=== PATIENT | male | born 1985 | race Caucasian/White ===

== ENCOUNTER 2017-06-17 21:21 | Emergency (ER) | payer OTHER, SELFPAY ==
[~2017-06-17] VITALS: Ht 172.7 cm; Wt 85.3 kg
[~2017-06-17 21:21] MED LIST: BACTRIM DS TAB1 EAC1 ORAL
[2017-06-17] MEDS ORDERED: Tubing IV Cassette IV ONE (21:45)
[2017-06-17] MEDS ORDERED: Morphine Sulfate 4mg/ml Inj IVP ONE (21:45)
--- NOTE | 2017-06-17 21:45 | Emergency Room Report ---
History of Present Illness General Chief Complaint: Abdominal Pain Source: Patient Present Illness HPI Is a 31-year-old male with no past medical history. He presents with chief complaint of abdominal pain and vomiting. Last night he ate a deconditioned around 11 PM. He woke up around 1 PM today with abdominal pain epigastric area. Has retching. Not much is coming out. No diarrhea. Subjective chills and questionable fever. Pain is 8/10. Sharp and crampy in nature. Allergies: Coded Allergies: No Known Allergies (Unverified , 03/28/14) Patient History Past Medical History: see triage record, old chart reviewed Past Surgical History: other Pertinent Family History: none Social History: Denies: smoking Immunizations: other Reviewed Nursing Documentation: PMH: Agreed, PSxH: Agreed Nursing Documentation-PMH Past Medical History: No Stated History Review of Systems Eye: Denies: eye pain, blurred vision ENT: Denies: ear pain, nose congestion, throat swelling Respiratory: Denies: cough, shortness of breath Cardiovascular: Denies: chest pain, palpitations Gastrointestinal: Reports: abdominal pain, nausea, vomiting, Denies: diarrhea Musculoskeletal: Denies: back pain, joint pain Skin: Denies: rash Neurological: Denies: headache, numbness Endocrine: Denies: increased thirst, increased urine Hematologic/Lymphatic: Denies: easy bruising All Other Systems: negative except mentioned in HPI Physical Exam Vital Signs Date Time Temp Pulse Resp B/P (MAP) Pulse Ox O2 Delivery O2 Flow Rate FiO2 06/17/17 21:28 100.0 91 18 129/75 98 Room Air vitals normal except for low-grade fever Sp02 EP Interpretation: reviewed, normal General Appearance: well appearing, no apparent distress, alert Head: normocephalic, atraumatic Eyes: bilateral eye PERRL, bilateral eye EOMI ENT: hearing grossly normal, normal pharynx Neck: full range of motion, supple, no meningismus Respiratory: chest non-tender, lungs clear, normal breath sounds Cardiovascular #1: regular rate, rhythm, no murmur Gastrointestinal: normal bowel sounds, non tender, no mass, no organomegaly, no bruit, non-distended, tenderness - Periumbilical Musculoskeletal: back normal, gait/station normal, normal range of motion Neurologic: alert, oriented x3 Psychiatric: mood/affect normal Skin: warm/dry Medical Decision Making Diagnostic Impression: Primary Impression: Enteritis ER Course Patient presents with abdominal pain and vomiting. CT scan showed gastritis/ ileus. He fell better now. No evidence of obstruction. No evidence of appendicitis. CT scan also showed finding of pulmonary nodule. He has no respiratory complaint. CT/MRI/US Diagnostic Results CT/MRI/US Diagnostic Results : Imaging Test Ordered: CT abdomen and pelvis Impression Read by radiologist. Enteritis/ileus Last Vital Signs Date Time Temp Pulse Resp B/P (MAP) Pulse Ox O2 Delivery O2 Flow Rate FiO2 06/17/17 21:28 100.0 91 18 129/75 98 Room Air Status: improved Disposition: HOME, SELF-CARE Condition: Stable Scripts Naproxen* (NAPROSYN*) 500 Mg Tablet 500 MG ORAL TWICE A DAY, #20 TAB Prov: ORLANDO BRICEÑO M.D. 06/17/17 Metronidazole* (FLAGYL*) 500 Mg Tablet 500 MG ORAL BID, #14 TAB Prov: ORLANDO BRICEÑO M.D. 06/17/17 Ciprofloxacin Hcl* (CIPROFLOXACIN HCL*) 500 Mg Tablet 500 MG ORAL Q12H, #14 TAB 0 Refills Prov: ORLANDO BRICEÑO M.D. 06/17/17 Additional Instructions: Followup with your Dr. in 2-5 days. Return if symptom worsen. ORLANDO BRICEÑO M.D. Jun 17, 2017 21:45
[2017-06-17 21:54] LABS: MEAN CORPUSCULAR HEMOGLOBIN 30.8 PG (27.0-31.0); MEAN CORPUSCULAR HGB CONC 32.6 G/DL (32.0-36.0); MEAN CORPUSCULAR VOLUME 94 FL (80-99); MEAN PLATELET VOLUME 7.3 FL (6.5-10.1); PLATELET COUNT 162 K/UL (150-450); RED BLOOD COUNT 4.78 M/UL (4.70-6.10); RED CELL DISTRIBUTION WIDTH 11.4 % (11.6-14.8); WHITE BLOOD COUNT 6.4 K/UL (4.8-10.8)
[2017-06-17 21:55] LABS: LYMPHOCYTES % (AUTO) 4.1 % (20.0-45.0); MONOCYTES % (AUTO) 8.4 % (1.0-10.0); NEUTROPHILS % (AUTO) 86.5 % (45.0-75.0)
[2017-06-17 21:56] LABS: BASOPHILS % (AUTO) 0.4 % (0.0-2.0); EOSINOPHILS % (AUTO) 0.6 % (0.0-3.0)
[2017-06-17 22:13] LABS: ANION GAP 10 mmol/L (5-15); CALCIUM 8.7 MG/DL (8.5-10.1); CARBON DIOXIDE 27 MMOL/L (21-32); CHLORIDE 105 MMOL/L (98-107); CREATININE 1.1 MG/DL (0.55-1.30); GLOMERULAR FILTRATION RATE > 60 mL/min (>60); SODIUM 142 MMOL/L (136-145)
[2017-06-17 22:17] LABS: ALANINE AMINOTRANSFERASE 34 U/L (12-78); ALBUMIN/GLOBULIN RATIO 1.2 (1.0-2.7); ASPARTATE AMINO TRANSFERASE 22 U/L (15-37); LIPASE 189 U/L (73-393); TOTAL PROTEIN 7.8 G/DL (6.4-8.2)
[2017-06-17 22:21] LABS: APPEARANCE,URINE CLEAR; KETONES,URINE NEGATIVE (NEGATIVE); LEUKOCYTE ESTERASE ,URINE NEGATIVE (NEGATIVE); NITRITE,URINE NEGATIVE (NEGATIVE); PH,URINE 8 (4.5-8.0); PROTEIN,URINE NEGATIVE (NEGATIVE); UROBILINOGEN,URINE NORMAL MG/DL (0.0-1.0)
[2017-06-17 23:12] VITALS: BP 115/64
[2017-06-17] MEDS ORDERED: NAPROSYN500 M1 ORAL (23:19)
[2017-06-17] MEDS ORDERED: CIPROFLOXACIN500 M2 ORAL (23:19)
[2017-06-17] MEDS ORDERED: METRONIDAZOLE500 MG ORAL (23:19)
[2017-06-17 23:25] VITALS: BP 115/64
[2017-06-17] MEDS ORDERED: metroNIDAZOLE 500mg tab ORAL ONE (23:30)
[2017-06-17] MEDS ORDERED: Ciprofloxacin 500mg tab ORAL ONE (23:30)
--- NOTE | 2017-06-18 11:13 | Diagnostic Imaging Report ---
Clinical Indication: Abdominal pain Technique: No oral contrast utilized, per emergency room physician request IV administration nonionic contrast. Venous phase spiral acquisition obtained through the abdomen and pelvis. Multiplanar reconstructions were generated. Total dose length product 840 mGycm. CTDIvol(s) 15 mGy. Dose reduction achieved using automated exposure control Comparison: None Findings: Normal appendix. No evidence of diverticulosis or diverticulitis. Small bowel loops are mildly prominent and fluid-filled. Is trace free fluid within the pelvis Distal esophagus, stomach, duodenum are unremarkable. There is slight increased attenuation of the fat of the mesenteric root. There are also prominent lymph nodes within the mesenteric root. The liver, gallbladder, bile ducts, pancreas, spleen, adrenals, kidneys are unremarkable. Prominent and numerous but not frankly enlarged retroperitoneal nodes are demonstrated. No pelvic mass or adenopathy. There is a 3 mm nodule adjacent to the major fissure in the left lower lobe, 3 of series 4. The bones are unremarkable Impression: Induration of the mesenteric fat and multiple prominent mesenteric lymph nodes. Slightly prominent fluid-filled small bowel loops indicated this could be due to mild enteritis changes, but could also just be nonspecific mesenteric inflammation Trace free pelvic fluid, nonspecific but not physiologic in a male patient 3 mm left lower lobe lung nodule. No further followup necessary if patient is low risk for lung carcinoma. If patient is at high-risk, further evaluation with short interval CT in 6-12 months is recommended This agrees with the preliminary interpretation provided overnight by [facility] service. The CT scanner at [facility] is accredited by the [employer] and the scans are performed using protocols designed to limit radiation exposure to as low as reasonably achievable to attain images of sufficient resolution adequate for diagnostic evaluation.
== END 2017-06-17 23:27 | disposition home or self-care (01) ==
LOC: EMR 21:42
DX: K52.9 Noninfective gastroenteritis and colitis, unspecified (principal)
CPT/HCPCS: 36415; 74177; 80053; 81003; 83690; 85025; 96361; 96374; 96375; 99284; J2270; J2405; Q9967

== ENCOUNTER 2017-09-08 16:57 | Emergency (ER) | payer OTHER ==
[~2017-09-08] VITALS: Ht 167.6 cm; Wt 82.1 kg
[~2017-09-08 16:57] MED LIST changes: +CIPROFLOXACIN500 M2 ORAL; +METRONIDAZOLE500 MG ORAL; +NAPROSYN500 M1 ORAL
[2017-09-08] MEDS ORDERED: ZOFRAN ODT4 MG ORAL (17:11)
--- NOTE | 2017-09-08 17:12 | Emergency Room Report ---
History of Present Illness General Chief Complaint: Nausea, Vomiting, and Diarrhea Source: Patient Present Illness HPI 32-year-old male with no sig pmhx p/w nausea vomiting diarrhea, epigastric abd pain for one day. Pt reports n/v, >5 episodes of nbnb vomiting, >5 episodes of watery non bloody diarrhea. Denies black or bloody stools. Patient states pain started gradually , localized to epigastric area, non radiating, burning in nature, intermittent. No relieving or exacerbating factors. had same thing happen 4 mos ago. denies chronic NSAID use. Denies fever, chills. No hx of abdominal surgeries. No hx of endoscopies/colonoscopies. Allergies: Coded Allergies: No Known Allergies (Unverified , 03/28/14) Patient History Past Medical History: see triage record Past Surgical History: none Pertinent Family History: none Reviewed Nursing Documentation: PMH: Agreed, PSxH: Agreed Nursing Documentation-PMH Past Medical History: No Stated History Review of Systems All Other Systems: negative except mentioned in HPI Physical Exam Vital Signs Date Time Temp Pulse Resp B/P (MAP) Pulse Ox O2 Delivery O2 Flow Rate FiO2 09/08/17 17:00 98.1 95 18 119/70 98 Room Air 98.1 Sp02 EP Interpretation: reviewed, normal General Appearance: alert, GCS 15, non-toxic, mild distress Head: normocephalic, atraumatic Eyes: bilateral eye normal inspection, bilateral eye PERRL, bilateral eye EOMI ENT: normal ENT inspection, normal pharynx, normal voice, moist mucus membranes Neck: normal inspection, full range of motion, supple Respiratory: normal inspection, lungs clear, normal breath sounds, no respiratory distress, no retraction, no wheezing, speaking full sentences, chest symmetrical Cardiovascular #1: normal inspection, regular rate, rhythm, no edema, normal capillary refill Cardiovascular #2: 2+ radial (R), 2+ radial (L) Gastrointestinal: other - mild epigastric tenderness no ruq tenderness no guarding no rebound. nontende elsewhere on abdomen Genitourinary: no CVA tenderness Musculoskeletal: normal inspection, back normal, normal range of motion, non- tender Neurologic: normal inspection, alert, oriented x3, responsive, motor strength/ tone normal, sensory intact, normal gait, speech normal Psychiatric: normal inspection, judgement/insight normal, memory normal Skin: normal inspection, normal color, no rash, warm/dry, well hydrated, normal turgor Medical Decision Making Diagnostic Impression: Primary Impression: Nausea, vomiting, and diarrhea ER Course 32-year-old male with nausea vomiting diarrhea and epigastric abdominal pain Differential Diagnosis: Gastritis, gastroenteritis, cholecystitis, appendicitis, diverticulitis, UTI/ pyelo At this time abdomen is soft nontender the exception of the epigastric region, will hold CT for now. No recent antibiotic use Plan: Basic labs, ua, ekg Pepcid, maalox, pain control, IVF ER course: Patient has remained stable during ED stay. nor further episodes of vomiting Pain improved. Repeat abdominal exam is nontender. Disposition: Patient is to be discharged to home. Prescriptions given are Zofran Patient is instructed to follow up with their primary care doctor within 5 days. also instructed to fu with gastroenterology if having persistent chronic sx Strict return precautions discussed with patient such as fever, chills, worsening/severe abdominal pain, nausea, vomiting, black or bloody stools, which may indicate severe illness. Patient verbalizes understanding and agrees with plan. Please note that this Emergency Department Report was dictated using [employer] measurer technology software, occasionally this can lead to erroneous entry secondary to interpretation by the dictation equipment Laboratory Tests Test 09/08/17 17:35 White Blood Count 8.3 K/UL (4.8-10.8) Red Blood Count 5.40 M/UL (4.70-6.10) Hemoglobin 16.9 G/DL (14.2-18.0) Hematocrit 50.4 % (42.0-52.0) Mean Corpuscular Volume 93 FL (80-99) Mean Corpuscular Hemoglobin 31.4 PG (27.0-31.0) H Mean Corpuscular Hemoglobin Concent 33.6 G/DL (32.0-36.0) Red Cell Distribution Width 12.0 % (11.6-14.8) Platelet Count 190 K/UL (150-450) Mean Platelet Volume 8.0 FL (6.5-10.1) Neutrophils (%) (Auto) 79.1 % (45.0-75.0) H Lymphocytes (%) (Auto) 8.7 % (20.0-45.0) L Monocytes (%) (Auto) 8.7 % (1.0-10.0) Eosinophils (%) (Auto) 2.9 % (0.0-3.0) Basophils (%) (Auto) 0.6 % (0.0-2.0) Urine Color Yellow Urine Appearance Clear Urine pH 6.5 (4.5-8.0) Urine Specific [place] 1.010 (1.005-1.035) Urine Protein Negative (NEGATIVE) Urine Glucose (UA) Negative (NEGATIVE) Urine Ketones 1+ (NEGATIVE) H Urine Occult Blood Negative (NEGATIVE) Urine Nitrite Negative (NEGATIVE) Urine Bilirubin 1+ (NEGATIVE) H Urine Ictotest Pending Urine Urobilinogen Normal MG/DL (0.0-1.0) Urine Leukocyte Esterase Negative (NEGATIVE) Sodium Level 137 MMOL/L (136-145) Potassium Level 4.6 MMOL/L (3.5-5.1) Chloride Level 101 MMOL/L (98-107) Carbon Dioxide Level 28 MMOL/L (21-32) Anion Gap 8 mmol/L (5-15) Blood Urea Nitrogen 17 mg/dL (7-18) Creatinine 1.0 MG/DL (0.55-1.30) Estimate Glomerular Filtration Rate > 60 mL/min (>60) Glucose Level 109 MG/DL (74-106) H Calcium Level 9.8 MG/DL (8.5-10.1) Total Bilirubin 0.7 MG/DL (0.2-1.0) Aspartate Amino Transferase (AST) 28 U/L (15-37) Alanine Aminotransferase (ALT) 49 U/L (12-78) Alkaline Phosphatase 84 U/L (46-116) Total Protein 8.3 G/DL (6.4-8.2) H Albumin 4.5 G/DL (3.4-5.0) Globulin 3.8 g/dL Albumin/Globulin Ratio 1.2 (1.0-2.7) Lipase 172 U/L (73-393) Last Vital Signs Date Time Temp Pulse Resp B/P (MAP) Pulse Ox O2 Delivery O2 Flow Rate FiO2 09/08/17 17:00 98.1 95 18 119/70 98 Room Air 98.1 Disposition: HOME, SELF-CARE Condition: Improved Scripts Ondansetron Odt* (ZOFRAN ODT*) 4 Mg Tab.rapdis 4 MG ORAL Q6H Y for Nausea & Vomiting, #15 TAB 0 Refills Prov: Glenna Galeana M.D. 09/08/17 Patient Instructions: VOMITING AND DIARRHEA, Nonspecific (Adult) Glenna Galeana M.D. Sep 08, 2017 17:12
[2017-09-08 18:01] LABS: BASOPHILS % (AUTO) 0.6 % (0.0-2.0); EOSINOPHILS % (AUTO) 2.9 % (0.0-3.0); HEMATOCRIT 50.4 % (42.0-52.0); HEMOGLOBIN 16.9 G/DL (14.2-18.0); LYMPHOCYTES % (AUTO) 8.7 % (20.0-45.0); MEAN CORPUSCULAR VOLUME 93 FL (80-99); MONOCYTES % (AUTO) 8.7 % (1.0-10.0); NEUTROPHILS % (AUTO) 79.1 % (45.0-75.0); PLATELET COUNT 190 K/UL (150-450); WHITE BLOOD COUNT 8.3 K/UL (4.8-10.8)
[2017-09-08 18:11] LABS: APPEARANCE,URINE CLEAR; BILIRUBIN, URINE 1+ (NEGATIVE); GLUCOSE, URINE (UA) NEGATIVE (NEGATIVE); KETONES,URINE 1+ (NEGATIVE); LEUKOCYTE ESTERASE ,URINE NEGATIVE (NEGATIVE); NITRITE,URINE NEGATIVE (NEGATIVE); PH,URINE 6.5 (4.5-8.0); PROTEIN,URINE NEGATIVE (NEGATIVE); UROBILINOGEN,URINE NORMAL MG/DL (0.0-1.0)
[2017-09-08 18:13] LABS: ANION GAP 8 mmol/L (5-15); BLOOD UREA NITROGEN 17 mg/dL (7-18); CALCIUM 9.8 MG/DL (8.5-10.1); CARBON DIOXIDE 28 MMOL/L (21-32); CHLORIDE 101 MMOL/L (98-107); COLOR,URINE YELLOW; POTASSIUM 4.6 MMOL/L (3.5-5.1); SODIUM 137 MMOL/L (136-145)
[2017-09-08] MEDS ORDERED: Morphine Sulfate 4mg/ml Inj IVP ONE (18:15)
[2017-09-08 18:20] LABS: ALANINE AMINOTRANSFERASE 49 U/L (12-78); ALBUMIN 4.5 G/DL (3.4-5.0); ALBUMIN/GLOBULIN RATIO 1.2 (1.0-2.7); ALKALINE PHOSPHATASE 84 U/L (46-116); ASPARTATE AMINO TRANSFERASE 28 U/L (15-37); BILIRUBIN,TOTAL 0.7 MG/DL (0.2-1.0)
[2017-09-08 19:00] VITALS: BP 117/68
[2017-09-08 19:01] VITALS: BP 117/68
[2017-09-09] MEDS ORDERED: TRUVADA 200 MG1 EAC1 ORAL (23:27)
[2017-09-09] MEDS ORDERED: XANAX0.5 MG ORAL (23:27)
== END 2017-09-08 19:02 | disposition home or self-care (01) ==
LOC: EMR 17:30
DX: R11.2 Nausea with vomiting, unspecified (principal); R19.7 Diarrhea, unspecified
CPT/HCPCS: 36415; 80053; 81003; 83690; 85025; 96361; 96374; 96375; 99284; J2270; J2405; S0028

== ENCOUNTER 2017-09-09 19:23 | Inpatient (IN) | payer OTHER ==
[~2017-09-09] VITALS: Ht 172.7 cm; Wt 81.6 kg
[~2017-09-09 19:23] MED LIST changes: +ZOFRAN ODT4 MG ORAL
--- NOTE | 2017-09-09 20:01 | Emergency Room Report ---
History of Present Illness General Chief Complaint: Abdominal Pain Source: Patient Present Illness HPI 32-year-old male p/w nausea vomiting diarrhea, fever, epigastric abd pain for one week Patient was seen in the emergency room yesterday, diagnosed with gastroenteritis , felt much better after medications, and was discharged home. Patient now returning because stating that he is still having persistent symptoms. Throwing up everything. Vomiting more than 5 times Still able to drink some fluids and eat some bread. Also now complaining of fever, temperature 101 No recent antibiotics use, no recent travel Allergies: Coded Allergies: No Known Allergies (Unverified , 03/28/14) Patient History Past Medical History: see triage record Past Surgical History: none Pertinent Family History: none Reviewed Nursing Documentation: PMH: Agreed, PSxH: Agreed Nursing Documentation-PMH Past Medical History: No Stated History Review of Systems All Other Systems: negative except mentioned in HPI Physical Exam Vital Signs Date Time Temp Pulse Resp B/P (MAP) Pulse Ox O2 Delivery O2 Flow Rate FiO2 09/09/17 19:41 101.0 106 18 122/66 98 Room Air 100.9 Sp02 EP Interpretation: reviewed, normal General Appearance: alert, GCS 15, non-toxic, mild distress Head: normocephalic, atraumatic Eyes: bilateral eye normal inspection, bilateral eye PERRL, bilateral eye EOMI ENT: normal ENT inspection, normal voice, dry mucus membranes Neck: normal inspection, full range of motion, supple Respiratory: normal inspection, lungs clear, normal breath sounds, no respiratory distress, no retraction, no wheezing, speaking full sentences, chest symmetrical Cardiovascular #1: normal inspection, regular rate, rhythm, normal capillary refill Cardiovascular #2: 2+ radial (R), 2+ radial (L) Gastrointestinal: other - mild epigastric tenderness, no guarding no rebound Musculoskeletal: normal inspection, back normal, normal range of motion, non- tender Neurologic: normal inspection, alert, oriented x3, responsive, motor strength/ tone normal, sensory intact, normal gait, speech normal Psychiatric: normal inspection, judgement/insight normal, memory normal Skin: normal color, no rash, warm/dry Medical Decision Making Diagnostic Impression: Primary Impression: Dehydration Additional Impressions: Intractable nausea and vomiting Elevated lipase ER Course 32 yo M with nvd Differential Diagnosis: Gastritis, gastroenteritis, cholecystitis, appendicitis, diverticulitis, UTI/ pyelo At this time abdomen is soft nontender, not likely to have acute intra- abdominal surgical pathology, will hold CT for now. Plan: Basic labs, ua, ekg Pepcid, maalox, pain control, IVF ER course: patient given meds, still feeling nauseous repeat abd exam very soft given more zofran vomited again will admit Disposition: Patient is to be admitted to [facility] Please note that this Emergency Department Report was dictated using [employer] loader technology software, occasionally this can lead to erroneous entry secondary to interpretation by the dictation equipment Laboratory Tests Test 09/09/17 20:00 White Blood Count 5.8 K/UL (4.8-10.8) Red Blood Count 5.42 M/UL (4.70-6.10) Hemoglobin 16.8 G/DL (14.2-18.0) Hematocrit 50.4 % (42.0-52.0) Mean Corpuscular Volume 93 FL (80-99) Mean Corpuscular Hemoglobin 31.1 PG (27.0-31.0) H Mean Corpuscular Hemoglobin Concent 33.4 G/DL (32.0-36.0) Red Cell Distribution Width 11.8 % (11.6-14.8) Platelet Count 174 K/UL (150-450) Mean Platelet Volume 8.4 FL (6.5-10.1) Neutrophils (%) (Auto) 72.6 % (45.0-75.0) Lymphocytes (%) (Auto) 13.5 % (20.0-45.0) L Monocytes (%) (Auto) 10.5 % (1.0-10.0) H Eosinophils (%) (Auto) 2.8 % (0.0-3.0) Basophils (%) (Auto) 0.7 % (0.0-2.0) Sodium Level 134 MMOL/L (136-145) L Potassium Level 4.5 MMOL/L (3.5-5.1) Chloride Level 100 MMOL/L (98-107) Carbon Dioxide Level 25 MMOL/L (21-32) Anion Gap 9 mmol/L (5-15) Blood Urea Nitrogen 17 mg/dL (7-18) Creatinine 1.1 MG/DL (0.55-1.30) Estimate Glomerular Filtration Rate > 60 mL/min (>60) Glucose Level 106 MG/DL (74-106) Calcium Level 9.3 MG/DL (8.5-10.1) Total Bilirubin 0.6 MG/DL (0.2-1.0) Aspartate Amino Transferase (AST) 22 U/L (15-37) Alanine Aminotransferase (ALT) 41 U/L (12-78) Alkaline Phosphatase 80 U/L (46-116) Total Protein 8.1 G/DL (6.4-8.2) Albumin 4.1 G/DL (3.4-5.0) Globulin 4.0 g/dL Albumin/Globulin Ratio 1.0 (1.0-2.7) Lipase 433 U/L (73-393) H Last Vital Signs Date Time Temp Pulse Resp B/P (MAP) Pulse Ox O2 Delivery O2 Flow Rate FiO2 09/09/17 19:41 101.0 106 18 122/66 98 Room Air 100.9 Disposition: ADMITTED INPATIENT Condition: Serious Referrals: [facility],REFERRING (PCP) Glenna Galeana M.D. Sep 09, 2017 20:01
[2017-09-09] MEDS ORDERED: Morphine Sulfate 4mg/ml Inj IVP ONE (20:15)
[2017-09-09] MEDS ORDERED: Acetaminophen 500mg (ES) tab ORAL ONE (20:15)
[2017-09-09 20:43] LABS: BASOPHILS % (AUTO) 0.7 % (0.0-2.0); EOSINOPHILS % (AUTO) 2.8 % (0.0-3.0); HEMATOCRIT 50.4 % (42.0-52.0); HEMOGLOBIN 16.8 G/DL (14.2-18.0); LYMPHOCYTES % (AUTO) 13.5 % (20.0-45.0); MEAN CORPUSCULAR VOLUME 93 FL (80-99); MONOCYTES % (AUTO) 10.5 % (1.0-10.0); NEUTROPHILS % (AUTO) 72.6 % (45.0-75.0); PLATELET COUNT 174 K/UL (150-450); RED BLOOD COUNT 5.42 M/UL (4.70-6.10); RED CELL DISTRIBUTION WIDTH 11.8 % (11.6-14.8); WHITE BLOOD COUNT 5.8 K/UL (4.8-10.8)
[2017-09-09 20:52] LABS: ANION GAP 9 mmol/L (5-15); BLOOD UREA NITROGEN 17 mg/dL (7-18); CALCIUM 9.3 MG/DL (8.5-10.1); CARBON DIOXIDE 25 MMOL/L (21-32); CHLORIDE 100 MMOL/L (98-107); CREATININE 1.1 MG/DL (0.55-1.30); POTASSIUM 4.5 MMOL/L (3.5-5.1); SODIUM 134 MMOL/L (136-145)
[2017-09-09 20:57] LABS: ALANINE AMINOTRANSFERASE 41 U/L (12-78); ALBUMIN 4.1 G/DL (3.4-5.0); ALKALINE PHOSPHATASE 80 U/L (46-116); ASPARTATE AMINO TRANSFERASE 22 U/L (15-37); BILIRUBIN,TOTAL 0.6 MG/DL (0.2-1.0)
[2017-09-09 22:22] VITALS: BP 117/73
[2017-09-09 22:40] LABS: APPEARANCE,URINE CLEAR; BILIRUBIN, URINE 1+ (NEGATIVE); GLUCOSE, URINE (UA) NEGATIVE (NEGATIVE); KETONES,URINE 2+ (NEGATIVE); LEUKOCYTE ESTERASE ,URINE 1+ (NEGATIVE); NITRITE,URINE NEGATIVE (NEGATIVE); PH,URINE 5 (4.5-8.0); PROTEIN,URINE NEGATIVE (NEGATIVE); UROBILINOGEN,URINE NORMAL MG/DL (0.0-1.0)
[2017-09-09 22:41] LABS: COLOR,URINE YELLOW
[2017-09-09] MEDS ORDERED: XANAX0.5 MG ORAL (23:27)
[2017-09-09] MEDS ORDERED: TRUVADA 200 MG1 EAC1 ORAL (23:27)
[2017-09-09] MEDS ORDERED: Morphine Sulfate 4mg/ml Inj IVP PRN (23:45)
[2017-09-09 23:53] VITALS: BP 120/62
[2017-09-10] VITALS: BP 118/63
[2017-09-10] MEDS: D5 1/2NS 1,000 ML IV SCH ×3 (00:39→19:45)
[2017-09-10] MEDS: Morphine Sulfate 2mg/ml Inj IVP PRN ×2 (00:39→10:13)
[2017-09-10 04:00] VITALS: BP 125/74
[2017-09-10 08:00] VITALS: BP 113/78
[2017-09-10 08:17] LABS: BASOPHILS % (AUTO) 0.6 % (0.0-2.0); EOSINOPHILS % (AUTO) 3.5 % (0.0-3.0); HEMATOCRIT 44.8 % (42.0-52.0); HEMOGLOBIN 15.2 G/DL (14.2-18.0); LYMPHOCYTES % (AUTO) 26.5 % (20.0-45.0); MEAN CORPUSCULAR VOLUME 94 FL (80-99); MONOCYTES % (AUTO) 13.8 % (1.0-10.0); NEUTROPHILS % (AUTO) 55.5 % (45.0-75.0); PLATELET COUNT 137 K/UL (150-450); RED BLOOD COUNT 4.74 M/UL (4.70-6.10); RED CELL DISTRIBUTION WIDTH 12.1 % (11.6-14.8); WHITE BLOOD COUNT 4.8 K/UL (4.8-10.8)
[2017-09-10 09:02] LABS: ALANINE AMINOTRANSFERASE 26 U/L (12-78); ALBUMIN 3.3 G/DL (3.4-5.0); ALBUMIN/GLOBULIN RATIO 1.2 (1.0-2.7); ALKALINE PHOSPHATASE 65 U/L (46-116); AMYLASE 53 U/L (25-115); ANION GAP 4 mmol/L (5-15); ASPARTATE AMINO TRANSFERASE 20 U/L (15-37); BILIRUBIN,TOTAL 0.6 MG/DL (0.2-1.0); BLOOD UREA NITROGEN 12 mg/dL (7-18); CALCIUM 8.5 MG/DL (8.5-10.1); CARBON DIOXIDE 29 MMOL/L (21-32); CHLORIDE 104 MMOL/L (98-107); CREATININE 0.9 MG/DL (0.55-1.30); PHOSPHORUS 3.6 MG/DL (2.5-4.9); POTASSIUM 4.5 MMOL/L (3.5-5.1); SODIUM 137 MMOL/L (136-145)
--- NOTE | 2017-09-10 10:41 | Consultation ---
History of Present Illness General Date patient seen: Sep 10, 2017 Time patient seen: 12:45 Chief Complaint: Abdominal Pain Referring physician: dr Bernal Reason for Consultation: inpatient management Present Illness HPI 32y/old male without significant PMH p/w nausea, vomiting, diarrhea, fever, epigastric abd pain for one week Patient was seen in the emergency room yesterday, diagnosed with gastroenteritis , felt much better after medications, and was discharged home. Patient returned due to persistent symptoms , unable to hold down food, about 5 episodes of emesis, non bloody nobiliary able to drink some water diarrhea watery, no blood in stool Also reported fever-101 No recent antibiotics use, no recent travel in ED febrile, otherwise VSS no leukocytosis, stable HH, lytes, renal parameters and lytes elevated lipase -433 this am lipase down to normal- Mg-1.3 patient was admitted for further management Allergies: Coded Allergies: No Known Allergies (Unverified , 03/28/14) Medication History Scheduled Ciprofloxacin Hcl* (Ciprofloxacin Hcl*), 500 MG ORAL Q12H Emtricitabine/Tenofovir 200-300MG* (Truvada 200-300MG*), 1 TAB ORAL DAILY, ( Reported) Metronidazole* (Flagyl*), 500 MG ORAL BID Naproxen* (Naprosyn*), 500 MG ORAL TWICE A DAY Trimethoprim/Sulfamethoxazole 160/800* (Bactrim Ds Tablet*), 1 TAB ORAL Q12H Scheduled PRN Alprazolam* (Xanax*), 0.5 MG ORAL for Insomnia, (Reported) Ondansetron Odt* (Zofran Odt*), 4 MG ORAL Q6H PRN for Nausea & Vomiting Patient History History Provided By: Patient Healthcare decision maker Resuscitation status Full Code Advanced Directive on File No Review of Systems Constitutional: Reports: fever, weakness Eye: Reports: no symptoms ENT: Reports: no symptoms Cardiovascular: Reports: no symptoms Gastrointestinal: Reports: see HPI Genitourinary: Reports: no symptoms Musculoskeletal: Reports: no symptoms Skin: Reports: no symptoms Neurological: Reports: no symptoms Endocrine: Reports: no symptoms Physical Exam General Appearance: WD/WN, no apparent distress Lines, tubes and drains: peripheral HEENT: normocephalic, atraumatic, anicteric, mucous membranes moist, PERRL Neck: non-tender, supple Respiratory/Chest: lungs clear, no respiratory distress, no accessory muscle use Cardiovascular/Chest: normal peripheral pulses, normal rate, regular rhythm Abdomen: normal bowel sounds, soft - mild tenderness on palpation in epigastric area Extremities: normal range of motion, non-tender, no calf tenderness Skin Exam: warm/dry Neurologic: no motor/sensory deficits, alert, oriented x 3, responsive Musculoskeletal: normal muscle bulk Last 24 Hour Vital Signs Date Time Temp Pulse Resp B/P (MAP) Pulse Ox O2 Delivery O2 Flow Rate FiO2 09/10/17 10:13 101.3 09/10/17 09:31 101.3 09/10/17 08:00 101.2 101 18 113/78 98 09/10/17 04:00 98.0 67 20 125/74 98 Room Air 09/10/17 00:00 98.5 77 18 118/63 98 Room Air 09/09/17 23:59 98.3 90 18 120/62 95 Room Air 98.3 09/09/17 23:53 98.3 90 18 120/62 95 Room Air 98.3 09/09/17 22:22 98.3 85 18 117/73 95 Room Air 98.3 09/09/17 20:37 101.0 09/09/17 19:41 101.0 106 18 122/66 98 Room Air 100.9 Intake and Output 09/09/17 09/10/17 19:00 07:00 Intake Total 940 ml Balance 940 ml Intake Oral 240 ml IV Total 700 ml # Voids 2 Laboratory Tests Test 09/09/17 20:00 09/09/17 22:25 09/10/17 06:45 White Blood Count 5.8 K/UL (4.8-10.8) 4.8 K/UL (4.8-10.8) Red Blood Count 5.42 M/UL (4.70-6.10) 4.74 M/UL (4.70-6.10) Hemoglobin 16.8 G/DL (14.2-18.0) 15.2 G/DL (14.2-18.0) Hematocrit 50.4 % (42.0-52.0) 44.8 % (42.0-52.0) Mean Corpuscular Volume 93 FL (80-99) 94 FL (80-99) Mean Corpuscular Hemoglobin 31.1 PG (27.0-31.0) H 32.0 PG (27.0-31.0) H Mean Corpuscular Hemoglobin Concent 33.4 G/DL (32.0-36.0) 33.8 G/DL (32.0-36.0) Red Cell Distribution Width 11.8 % (11.6-14.8) 12.1 % (11.6-14.8) Platelet Count 174 K/UL (150-450) 137 K/UL (150-450) L Mean Platelet Volume 8.4 FL (6.5-10.1) 7.7 FL (6.5-10.1) Neutrophils (%) (Auto) 72.6 % (45.0-75.0) 55.5 % (45.0-75.0) Lymphocytes (%) (Auto) 13.5 % (20.0-45.0) L 26.5 % (20.0-45.0) Monocytes (%) (Auto) 10.5 % (1.0-10.0) H 13.8 % (1.0-10.0) H Eosinophils (%) (Auto) 2.8 % (0.0-3.0) 3.5 % (0.0-3.0) H Basophils (%) (Auto) 0.7 % (0.0-2.0) 0.6 % (0.0-2.0) Sodium Level 134 MMOL/L (136-145) L 137 MMOL/L (136-145) Potassium Level 4.5 MMOL/L (3.5-5.1) 4.5 MMOL/L (3.5-5.1) Chloride Level 100 MMOL/L (98-107) 104 MMOL/L (98-107) Carbon Dioxide Level 25 MMOL/L (21-32) 29 MMOL/L (21-32) Anion Gap 9 mmol/L (5-15) 4 mmol/L (5-15) L Blood Urea Nitrogen 17 mg/dL (7-18) 12 mg/dL (7-18) Creatinine 1.1 MG/DL (0.55-1.30) 0.9 MG/DL (0.55-1.30) Estimat Glomerular Filtration Rate > 60 mL/min (>60) > 60 mL/min (>60) Glucose Level 106 MG/DL (74-106) 101 MG/DL (74-106) Calcium Level 9.3 MG/DL (8.5-10.1) 8.5 MG/DL (8.5-10.1) Total Bilirubin 0.6 MG/DL (0.2-1.0) 0.6 MG/DL (0.2-1.0) Aspartate Amino Transf (AST/SGOT) 22 U/L (15-37) 20 U/L (15-37) Alanine Aminotransferase (ALT/SGPT) 41 U/L (12-78) 26 U/L (12-78) Alkaline Phosphatase 80 U/L (46-116) 65 U/L (46-116) Total Protein 8.1 G/DL (6.4-8.2) 6.1 G/DL (6.4-8.2) L Albumin 4.1 G/DL (3.4-5.0) 3.3 G/DL (3.4-5.0) L Globulin 4.0 g/dL 2.8 g/dL Albumin/Globulin Ratio 1.0 (1.0-2.7) 1.2 (1.0-2.7) Lipase 433 U/L (73-393) H 209 U/L (73-393) Urine Color Yellow Urine Appearance Clear Urine pH 5 (4.5-8.0) Urine Specific [place] 1.020 (1.005-1.035) Urine Protein Negative (NEGATIVE) Urine Glucose (UA) Negative (NEGATIVE) Urine Ketones 2+ (NEGATIVE) H Urine Occult Blood Negative (NEGATIVE) Urine Nitrite Negative (NEGATIVE) Urine Bilirubin 1+ (NEGATIVE) H Urine Ictotest Negative Urine Urobilinogen Normal MG/DL (0.0-1.0) Urine Leukocyte Esterase 1+ (NEGATIVE) H Urine RBC 0-2 /HPF (0 - 0) H Urine WBC 0-2 /HPF (0 - 0) Urine Squamous Epithelial Cells None /LPF (NONE/OCC) Urine Bacteria Few /HPF (NONE) Urine Mucus Many /LPF (NONE/OCC) H Phosphorus Level 3.6 MG/DL (2.5-4.9) Magnesium Level 1.3 MG/DL (1.8-2.4) L Amylase Level 53 U/L (25-115) Height (Feet): 5 Height (Inches): 8.00 Weight (Pounds): 180 Medications Current Medications Medications (Trade) Dose Ordered Sig/Nisreen Route PRN Reason Start Time Stop Time Status Last Admin Dose Admin Acetaminophen (Tylenol) 650 mg Q4H PRN ORAL Mild Pain/Temp > 100.5 09/10/17 00:00 10/10/17 00:00 09/10/17 09:31 Ciprofloxacin 200 ml @ 200 mls/hr Q12HR IV 09/10/17 09:00 09/17/17 08:59 09/10/17 09:24 Dextrose/Sodium Chloride 1,000 ml @ 100 mls/hr Q10H IV 09/09/17 23:45 10/09/17 23:44 09/10/17 09:24 Metronidazole 100 ml @ 100 mls/hr Q8HR IVPB 09/10/17 06:00 09/17/17 05:59 09/10/17 05:05 Morphine Sulfate (Morphine Sulfate) 2 mg Q4H PRN IVP For Pain 09/09/17 23:45 09/16/17 23:44 09/10/17 10:13 Morphine Sulfate (Morphine Sulfate) 4 mg Q4H PRN IVP For Pain 09/09/17 23:45 09/16/17 23:44 Ondansetron HCl (Zofran) 4 mg Q4HR PRN IVP Nausea & Vomiting 09/09/17 23:45 10/09/17 23:44 Assessment/Plan Assessment/Plan ASSESSMENT intractable n/v/ with diarrhea abdominal pain elevated lipase -resolved probably viral gastroenteritis hypo Mg PLAN OF CARE MS floor IVF CL diet and advance as tolerated abd US GI consult PPI a/emetic prn stool cx and stool C dif empiric abx ( for possible infectious casue) lipase trending down ( likely 2 to vomiting) LFT ok replace Mg ? ETOH abuse, declining, stating socially only get urine tos screen pain management case discussed and evaluated by supervising physician Gary (Agnes)Marilynn NP Sep 10, 2017 10:41
[2017-09-10] MEDS ORDERED: Morphine Sulfate 4mg/ml Inj IVP PRN ×3 (11:15→14:00)
[2017-09-10] MEDS ORDERED: Tubing IV Secondary IV ONE (11:18)
[2017-09-10] MEDS ORDERED: D5 1/2NS 1000ml IV ONE (11:18)
[2017-09-10 12:00] VITALS: BP 117/70
--- NOTE | 2017-09-10 13:27 | GI Initial Consult Note ---
History of Present Illness General Date patient seen: Sep 10, 2017 Time patient seen: 13:19 Reason for Hospitalization: Abdominal Pain Referring physician: OZ FELIX Reason for Consultation: N/V Present Illness HPI 32-year-old male p/w nausea vomiting diarrhea, fever, epigastric abd pain for one week Patient was seen in the emergency room yesterday, diagnosed with gastroenteritis , felt much better after medications, and was discharged home. Patient now returning because stating that he is still having persistent symptoms. Throwing up everything. Vomiting more than 5 times Still able to drink some fluids and eat some bread. Also now complaining of fever, temperature 101 No recent antibiotics use, no recent travel GI consulted for N/V. Pt seen on med surg, awake A&Ox4 NAD with no active s/ sx of N/V/D. Had severe epigastric pain with vomiting and diarrhea now is slowly resolving. Labs reviewed. No leukocytosis. Electrolyte imbalance. No history of endoscopy / colonoscopy. Home Meds Active Scripts Ondansetron Odt* (ZOFRAN ODT*) 4 Mg Tab.rapdis, 4 MG ORAL Q6H Y for Nausea & Vomiting, #15 TAB 0 Refills Prov:Glenna Galeana M.D. 09/08/17 Naproxen* (NAPROSYN*) 500 Mg Tablet, 500 MG ORAL TWICE A DAY, #20 TAB Prov:ORLANDO BRICEÑO M.D. 06/17/17 Metronidazole* (FLAGYL*) 500 Mg Tablet, 500 MG ORAL BID, #14 TAB Prov:ORLANDO BRICEÑO M.D. 06/17/17 Ciprofloxacin Hcl* (CIPROFLOXACIN HCL*) 500 Mg Tablet, 500 MG ORAL Q12H, #14 TAB 0 Refills Prov:ORLANDO BRICEÑO M.D. 06/17/17 Trimethoprim/Sulfamethoxazole 160/800* (BACTRIM DS TABLET*) 1 Each Tablet, 1 TAB ORAL Q12H, #14 TAB Prov:ORLANDO BRICEÑO M.D. 03/28/14 Reported Medications Alprazolam* (XANAX*) 0.5 Mg Tablet, 0.5 MG ORAL Y for Insomnia, TAB 09/09/17 Emtricitabine/Tenofovir 200-300MG* (TRUVADA 200-300MG*) 1 Each Tablet, 1 TAB ORAL DAILY, TAB 09/09/17 Med list reviewed/reconciled: Yes Allergies: Coded Allergies: No Known Allergies (Unverified , 03/28/14) Patient History History Provided By: Patient, Medical Record PMH Narrative Past Medical History: see triage record Past Surgical History: none Pertinent Family History: none Reviewed Nursing Documentation: PMH: Agreed, PSxH: Agreed Nursing Documentation-PM Past Medical History: No Stated History Past Surgical History: none Pertinent Family History: none Social History: Denies: smoking, alcohol use, drug use, other Review of Systems All Other Systems: negative except mentioned in HPI Physical Exam Vital Signs Date Time Temp Pulse Resp B/P (MAP) Pulse Ox O2 Delivery O2 Flow Rate FiO2 09/09/17 19:41 101.0 106 18 122/66 98 Room Air 100.9 Sp02 EP Interpretation: reviewed, normal Labs Laboratory Tests Test 09/09/17 20:00 09/09/17 22:25 09/10/17 06:45 White Blood Count 5.8 K/UL (4.8-10.8) 4.8 K/UL (4.8-10.8) Red Blood Count 5.42 M/UL (4.70-6.10) 4.74 M/UL (4.70-6.10) Hemoglobin 16.8 G/DL (14.2-18.0) 15.2 G/DL (14.2-18.0) Hematocrit 50.4 % (42.0-52.0) 44.8 % (42.0-52.0) Mean Corpuscular Volume 93 FL (80-99) 94 FL (80-99) Mean Corpuscular Hemoglobin 31.1 PG (27.0-31.0) H 32.0 PG (27.0-31.0) H Mean Corpuscular Hemoglobin Concent 33.4 G/DL (32.0-36.0) 33.8 G/DL (32.0-36.0) Red Cell Distribution Width 11.8 % (11.6-14.8) 12.1 % (11.6-14.8) Platelet Count 174 K/UL (150-450) 137 K/UL (150-450) L Mean Platelet Volume 8.4 FL (6.5-10.1) 7.7 FL (6.5-10.1) Neutrophils (%) (Auto) 72.6 % (45.0-75.0) 55.5 % (45.0-75.0) Lymphocytes (%) (Auto) 13.5 % (20.0-45.0) L 26.5 % (20.0-45.0) Monocytes (%) (Auto) 10.5 % (1.0-10.0) H 13.8 % (1.0-10.0) H Eosinophils (%) (Auto) 2.8 % (0.0-3.0) 3.5 % (0.0-3.0) H Basophils (%) (Auto) 0.7 % (0.0-2.0) 0.6 % (0.0-2.0) Sodium Level 134 MMOL/L (136-145) L 137 MMOL/L (136-145) Potassium Level 4.5 MMOL/L (3.5-5.1) 4.5 MMOL/L (3.5-5.1) Chloride Level 100 MMOL/L (98-107) 104 MMOL/L (98-107) Carbon Dioxide Level 25 MMOL/L (21-32) 29 MMOL/L (21-32) Anion Gap 9 mmol/L (5-15) 4 mmol/L (5-15) L Blood Urea Nitrogen 17 mg/dL (7-18) 12 mg/dL (7-18) Creatinine 1.1 MG/DL (0.55-1.30) 0.9 MG/DL (0.55-1.30) Estimat Glomerular Filtration Rate > 60 mL/min (>60) > 60 mL/min (>60) Glucose Level 106 MG/DL (74-106) 101 MG/DL (74-106) Calcium Level 9.3 MG/DL (8.5-10.1) 8.5 MG/DL (8.5-10.1) Total Bilirubin 0.6 MG/DL (0.2-1.0) 0.6 MG/DL (0.2-1.0) Aspartate Amino Transf (AST/SGOT) 22 U/L (15-37) 20 U/L (15-37) Alanine Aminotransferase (ALT/SGPT) 41 U/L (12-78) 26 U/L (12-78) Alkaline Phosphatase 80 U/L (46-116) 65 U/L (46-116) Total Protein 8.1 G/DL (6.4-8.2) 6.1 G/DL (6.4-8.2) L Albumin 4.1 G/DL (3.4-5.0) 3.3 G/DL (3.4-5.0) L Globulin 4.0 g/dL 2.8 g/dL Albumin/Globulin Ratio 1.0 (1.0-2.7) 1.2 (1.0-2.7) Lipase 433 U/L (73-393) H 209 U/L (73-393) Urine Color Yellow Urine Appearance Clear Urine pH 5 (4.5-8.0) Urine Specific [place] 1.020 (1.005-1.035) Urine Protein Negative (NEGATIVE) Urine Glucose (UA) Negative (NEGATIVE) Urine Ketones 2+ (NEGATIVE) H Urine Occult Blood Negative (NEGATIVE) Urine Nitrite Negative (NEGATIVE) Urine Bilirubin 1+ (NEGATIVE) H Urine Ictotest Negative Urine Urobilinogen Normal MG/DL (0.0-1.0) Urine Leukocyte Esterase 1+ (NEGATIVE) H Urine RBC 0-2 /HPF (0 - 0) H Urine WBC 0-2 /HPF (0 - 0) Urine Squamous Epithelial Cells None /LPF (NONE/OCC) Urine Bacteria Few /HPF (NONE) Urine Mucus Many /LPF (NONE/OCC) H Phosphorus Level 3.6 MG/DL (2.5-4.9) Magnesium Level 1.3 MG/DL (1.8-2.4) L Amylase Level 53 U/L (25-115) General Appearance: well appearing, no apparent distress, alert Head: normocephalic EENT: PERRL/EOMI, normal ENT inspection Neck: supple Respiratory: normal breath sounds, no respiratory distress Cardiovascular: normal rate Gastrointestinal: normal inspection, non tender, soft, normal bowel sounds, non -distended Rectal: deferred Genitourinary: deferred Musculoskeletal: normal inspection, back normal Neurologic: normal inspection, alert, oriented x3, responsive Psychiatric: normal inspection, judgement/insight normal, memory normal Skin: normal inspection, normal color, no rash, warm/dry, palpation normal, well hydrated Lymphatic: normal inspection, no adenopathy Current Medications Current Medications Medications (Trade) Dose Ordered Sig/Nisreen Route PRN Reason Start Time Stop Time Status Last Admin Dose Admin Acetaminophen (Tylenol) 650 mg Q4H PRN ORAL Mild Pain/Temp > 100.5 09/10/17 00:00 10/10/17 00:00 09/10/17 09:31 Ciprofloxacin 200 ml @ 200 mls/hr Q12HR IV 09/10/17 09:00 09/17/17 08:59 09/10/17 09:24 Dextrose/Sodium Chloride 1,000 ml @ 100 mls/hr Q10H IV 09/09/17 23:45 10/09/17 23:44 09/10/17 09:24 Magnesium Sulfate 100 ml @ 100 mls/hr Q1H IVPB 09/10/17 11:45 09/10/17 15:44 09/10/17 12:51 Metronidazole 100 ml @ 100 mls/hr Q8HR IVPB 09/10/17 06:00 09/17/17 05:59 09/10/17 05:05 Morphine Sulfate (Morphine Sulfate) 2 mg Q4H PRN IVP Moderate Pain (Pain Scale 4-6) 09/10/17 14:00 09/16/17 23:44 Morphine Sulfate (Morphine Sulfate) 4 mg Q4H PRN IVP Severe Pain (Pain Scale 7-10) 09/10/17 11:15 09/16/17 23:44 Ondansetron HCl (Zofran) 4 mg Q4HR PRN IVP Nausea & Vomiting 09/09/17 23:45 10/09/17 23:44 GI: Plan Problems: (1) Gastroenteritis Plan elevated lipase from excessive vomiting >> now normal symptomatic treatment zofran prn CLD, adv as tolerated electrolyte replacement pain mgmt ppi fu labs, HIV, HgA1C, utox, stool cultures Discussed with Dr. Murry. Thank you for this patient referral, we will follow. Jaja Briceño N.P. Sep 10, 2017 13:27
[2017-09-10] MEDS: Norco 5mg/325mg tab ORAL PRN ×2 (14:50→20:43)
--- NOTE | 2017-09-10 15:23 | History & Physical ---
History and Physical History & Physicial Brenden Bernal MD Sep 10, 2017 15:23
[2017-09-10 16:00] VITALS: BP 115/66
[2017-09-10 20:51] VITALS: BP 124/70
[2017-09-10] MEDS ORDERED: ALPRAZolam 0.5mg tab ORAL PRN (21:00)
--- NOTE | 2017-09-10 21:30 | History and Physical Report ---
DATE OF ADMISSION: 09/09/2017 CHIEF COMPLAINT: Abdominal pain, nausea, vomiting, and diarrhea. HISTORY OF PRESENT ILLNESS: The patient is a 32-year-old gentleman. He denies any past medical history, past surgical history. Denies any history of HIV; however, he is on the retroviral medication to prophylactically prevent HIV who presented to the hospital complaining about fever, chills, diarrhea, nausea, vomiting, and epigastric pain starting last Wednesday two days ago. He presented himself to the emergency room and was subsequently given Zofran and Tylenol and he felt better he went home however he returned back to the hospital because the symptoms got progressively worsening associated with dark stool and subsequently the patient was admitted to the hospital with a possible gastroenteritis. PAST MEDICAL AND PAST SURGICAL HISTORY: None. MEDICATIONS: Medications at home significant for Zofran, naproxen, metronidazole, Cipro, Bactrim, , Xanax, and Truvada. ALLERGIES: No known drug allergies. SOCIAL HISTORY: Denies any smoking, alcohol, or drugs. He graduated from graduate school. 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 FAMILY HISTORY: Noncontributory. REVIEW OF SYSTEMS: Unremarkable except for diarrhea, nausea, vomiting, fever. PHYSICAL EXAMINATION: VITAL SIGNS: On admission, temperature of 101.0, pulse of 106, respirations 18, blood pressure 122/66. GENERAL: The patient is awake, responsive, anxious. HEENT: Head and neck examination, pupils reactive to light. Extraocular movements intact. NECK: Supple. No JVD. LUNGS: Good air entry. No wheezing or rales. HEART: S1 and S2. Regular rhythm. Normal gallop. ABDOMEN: Soft, nondistended, and nontender. Positive bowel sounds. EXTREMITIES: No cyanosis, clubbing, or edema. NEUROLOGIC: Cranial nerves II through XII grossly intact. Motor is 5/5 in all extremities. Gait is intact. LABORATORY AND DIAGNOSTIC DATA: On admission, WBC of 5.8, hemoglobin 16, hematocrit 50, platelets 174. Sodium 134, potassium 4.5, chloride 100, bicarb 25, BUN 17, creatinine 1.1, GFR more than 60, glucose is 106. Lipase is 433. UA is +2 ketones, +1 leukocytes, many urine mucus. ASSESSMENT: 1. Abdominal pain associated with nausea, vomiting, diarrhea, possible gastroenteritis. 2. Elevated lipase possible due to the gastroenteritis however cannot rule out pancreatitis. 3. Dehydration. PLAN: Admit the patient to med/surg. Broad-spectrum antibiotics with Cipro and Flagyl. Aggressive IV hydration. Clear liquid diet. We will followup with septic workup. Discussed case with Dr. Murry of Gastroenterology, Dr. Alvarado from Pulmonary Critical Care. Followup with HIV tests and stool study. Code status Full Code. DVT prophylaxis is ambulatory as well as heparin subcutaneous. Brenden Bernal M.D. DR: Faye JOB#: [id number] CC:
[2017-09-11] MEDS: D5 1/2NS 1,000 ML IV SCH (05:58)
[2017-09-11] MEDS: Norco 5mg/325mg tab ORAL PRN ×2 (05:59→12:21)
[2017-09-11 06:00] VITALS: BP 105/67
[2017-09-11 08:00] VITALS: BP 122/78
[2017-09-11 08:37] LABS: BASOPHILS % (AUTO) 0.6 % (0.0-2.0); EOSINOPHILS % (AUTO) 2.7 % (0.0-3.0); HEMATOCRIT 40.1 % (42.0-52.0); LYMPHOCYTES % (AUTO) 20.7 % (20.0-45.0); MEAN CORPUSCULAR VOLUME 93 FL (80-99); MONOCYTES % (AUTO) 12.1 % (1.0-10.0); NEUTROPHILS % (AUTO) 63.8 % (45.0-75.0); PLATELET COUNT 135 K/UL (150-450); RED BLOOD COUNT 4.31 M/UL (4.70-6.10); RED CELL DISTRIBUTION WIDTH 11.5 % (11.6-14.8); WHITE BLOOD COUNT 7.1 K/UL (4.8-10.8)
[2017-09-11 08:49] LABS: ANION GAP 7 mmol/L (5-15); BLOOD UREA NITROGEN 8 mg/dL (7-18); CALCIUM 8.5 MG/DL (8.5-10.1); CARBON DIOXIDE 27 MMOL/L (21-32); CHLORIDE 104 MMOL/L (98-107); POTASSIUM 3.4 MMOL/L (3.5-5.1); SODIUM 138 MMOL/L (136-145)
--- NOTE | 2017-09-11 10:27 | Pulmonology Progress Note ---
Assessment/Plan Assessment/Plan ASSESSMENT intractable n/v/ with diarrhea abdominal pain elevated lipase -resolved probably viral gastroenteritis hypo Mg PLAN OF CARE MS floor IVF tolerates deit abd US resuklts pending GI follows PPI a/emetic prn stool cx and stool C dif empiric abx ( for possible infectious casue) lipase down to normal ( likely 2 to vomiting) LFT ok Mg stable after replacement give 40 KCL get urine tox screen and HIV negative pain management case discussed and evaluated by supervising physician Subjective Allergies: Coded Allergies: No Known Allergies (Unverified , 03/28/14) Subjective improving less abdominal pain, afebrile today, no diarrhea + headache tolerates diet Objective Last 24 Hour Vital Signs Date Time Temp Pulse Resp B/P (MAP) Pulse Ox O2 Delivery O2 Flow Rate FiO2 09/11/17 08:00 98.2 77 18 122/78 97 09/11/17 07:01 98.3 09/11/17 06:00 98.3 73 18 105/67 98 09/11/17 05:59 97.3 09/10/17 20:51 100 Room Air 09/10/17 20:51 97.3 68 19 124/70 100 09/10/17 20:43 98.1 09/10/17 16:00 98.1 83 17 115/66 97 09/10/17 14:50 99.7 09/10/17 12:52 99.7 09/10/17 12:00 100.9 100 20 117/70 97 Intake and Output 09/10/17 09/11/17 19:00 07:00 Intake Total 450 ml 2100 ml Output Total 700 ml Balance 450 ml 1400 ml Intake Oral 450 ml 800 ml IV Total 1300 ml Output Urine Total 700 ml # Voids 3 Objective General Appearance: WD/WN, no apparent distress Lines, tubes and drains: peripheral HEENT: normocephalic, atraumatic, anicteric, mucous membranes moist, PERRL Neck: non-tender, supple Respiratory/Chest: lungs clear, no respiratory distress, no accessory muscle use Cardiovascular/Chest: normal peripheral pulses, normal rate, regular rhythm Abdomen: normal bowel sounds, soft - mild tenderness on palpation in epigastric area Extremities: normal range of motion, non-tender, no calf tenderness Skin Exam: warm/dry Neurologic: no motor/sensory deficits, alert, oriented x 3, responsive Musculoskeletal: normal muscle bulk Laboratory Tests 09/10/17 16:00: Urine Opiates Screen Negative, Urine Barbiturates Screen Negative, Phencyclidine (PCP) Screen Negative, Urine Amphetamines Screen Negative, Urine Benzodiazepines Screen Negative, Urine Cocaine Screen Negative, Urine Marijuana (THC) Screen Negative 09/11/17 08:00: White Blood Count 7.1, Red Blood Count 4.31L, Hemoglobin 14.0L, Hematocrit 40.1L , Mean Corpuscular Volume 93, Mean Corpuscular Hemoglobin 32.5H, Mean Corpuscular Hemoglobin Concent 35.0, Red Cell Distribution Width 11.5L, Platelet Count 135L, Mean Platelet Volume 7.9, Neutrophils (%) (Auto) 63.8, Lymphocytes (%) (Auto) 20.7, Monocytes (%) (Auto) 12.1H, Eosinophils (%) (Auto) 2.7, Basophils (%) (Auto) 0.6, Sodium Level 138, Potassium Level 3.4L, Chloride Level 104, Carbon Dioxide Level 27, Anion Gap 7, Blood Urea Nitrogen 8, Creatinine 1.0, Estimat Glomerular Filtration Rate > 60, Glucose Level 103, Hemoglobin A1c 5.9, Calcium Level 8.5, Magnesium Level 1.8, HIV (1&2) Antibody Rapid Negative Current Medications Medications (Trade) Dose Ordered Sig/Nisreen Route PRN Reason Start Time Stop Time Status Last Admin Dose Admin Acetaminophen (Tylenol) 650 mg Q4H PRN ORAL Mild Pain/Temp > 100.5 09/10/17 00:00 10/10/17 00:00 09/10/17 09:31 Acetaminophen/ Hydrocodone Bitart ([place] 5/325) 1 tab Q6H PRN ORAL Moderate Pain (Pain Scale 4-6) 09/10/17 13:30 09/17/17 13:29 09/11/17 05:59 Alprazolam (Xanax) 0.5 mg HSPRN PRN ORAL For Anxiety 09/10/17 21:00 09/17/17 20:59 09/10/17 22:03 Ciprofloxacin 200 ml @ 200 mls/hr Q12HR IV 09/10/17 09:00 09/17/17 08:59 09/11/17 08:50 Dextrose/Sodium Chloride 1,000 ml @ 100 mls/hr Q10H IV 09/09/17 23:45 10/09/17 23:44 09/11/17 05:58 Metronidazole 100 ml @ 100 mls/hr Q8HR IVPB 09/10/17 06:00 09/17/17 05:59 09/11/17 05:58 Morphine Sulfate (Morphine Sulfate) 2 mg Q4H PRN IVP Severe Pain (Pain Scale 7-10) 09/10/17 14:00 09/17/17 13:59 Ondansetron HCl (Zofran) 4 mg Q4HR PRN IVP Nausea & Vomiting 09/09/17 23:45 10/09/17 23:44 Gary (Dahianafilemon)Marilynn NP Sep 11, 2017 10:27
--- NOTE | 2017-09-11 11:05 | General Progress Note ---
Assessment/Plan Problem List: (1) Dehydration ICD Codes: E86.0 - Dehydration SNOMED: 92202273 (2) Gastroenteritis ICD Codes: K52.9 - Noninfective gastroenteritis and colitis, unspecified SNOMED: 02754689 Assessment/Plan no diarrhea today neg c.diff ok to dc Subjective ROS Limited/Unobtainable: Yes Allergies: Coded Allergies: No Known Allergies (Unverified , 03/28/14) Subjective no diarrhea tolerating diet Objective Last 24 Hour Vital Signs Date Time Temp Pulse Resp B/P (MAP) Pulse Ox O2 Delivery O2 Flow Rate FiO2 09/11/17 08:00 98.2 77 18 122/78 97 09/11/17 07:01 98.3 09/11/17 06:00 98.3 73 18 105/67 98 09/11/17 05:59 97.3 09/10/17 20:51 100 Room Air 09/10/17 20:51 97.3 68 19 124/70 100 09/10/17 20:43 98.1 09/10/17 16:00 98.1 83 17 115/66 97 09/10/17 14:50 99.7 09/10/17 12:52 99.7 09/10/17 12:00 100.9 100 20 117/70 97 Intake and Output 09/10/17 09/11/17 19:00 07:00 Intake Total 450 ml 2100 ml Output Total 700 ml Balance 450 ml 1400 ml Intake Oral 450 ml 800 ml IV Total 1300 ml Output Urine Total 700 ml # Voids 3 Laboratory Tests 09/10/17 16:00: Urine Opiates Screen Negative, Urine Barbiturates Screen Negative, Phencyclidine (PCP) Screen Negative, Urine Amphetamines Screen Negative, Urine Benzodiazepines Screen Negative, Urine Cocaine Screen Negative, Urine Marijuana (THC) Screen Negative 09/11/17 08:00: White Blood Count 7.1, Red Blood Count 4.31L, Hemoglobin 14.0L, Hematocrit 40.1L , Mean Corpuscular Volume 93, Mean Corpuscular Hemoglobin 32.5H, Mean Corpuscular Hemoglobin Concent 35.0, Red Cell Distribution Width 11.5L, Platelet Count 135L, Mean Platelet Volume 7.9, Neutrophils (%) (Auto) 63.8, Lymphocytes (%) (Auto) 20.7, Monocytes (%) (Auto) 12.1H, Eosinophils (%) (Auto) 2.7, Basophils (%) (Auto) 0.6, Sodium Level 138, Potassium Level 3.4L, Chloride Level 104, Carbon Dioxide Level 27, Anion Gap 7, Blood Urea Nitrogen 8, Creatinine 1.0, Estimat Glomerular Filtration Rate > 60, Glucose Level 103, Hemoglobin A1c 5.9, Calcium Level 8.5, Magnesium Level 1.8, HIV (1&2) Antibody Rapid Negative Height (Feet): 5 Height (Inches): 8.00 Weight (Pounds): 180 General Appearance: no apparent distress EENT: normal ENT inspection Neck: supple Cardiovascular: normal rate Respiratory/Chest: decreased breath sounds Abdomen: normal bowel sounds, non tender, soft Extremities: non-tender DENISE BRADSHAW Sep 11, 2017 11:05
--- NOTE | 2017-09-11 11:58 | Diagnostic Imaging Report ---
Indication:Abdominal pain Technique: Grayscale and duplex Doppler imaging of the abdomen performed. Comparison: None Findings: The liver, demonstrated part of the pancreas, gallbladder, aorta and IVC, both kidneys, spleen appear unremarkable. There is no biliary ductal dilatation identified. Doppler evaluation of the main portal vein shows patency. There is no ascites. No hydronephrosis seen. CBD is 3.3 mm. Impression: No acute findings.
[2017-09-11 12:00] VITALS: BP 114/64
--- NOTE | 2017-09-11 13:38 | Internal Med Progress Note ---
Subjective Date of Service: Sep 11, 2017 Physician Name Gagandeep Espinoza Attending Physician Brenden Bernal MD Current Medications Medications (Trade) Dose Ordered Sig/Nisreen Route PRN Reason Start Time Stop Time Status Last Admin Dose Admin Acetaminophen (Tylenol) 650 mg Q4H PRN ORAL Mild Pain/Temp > 100.5 09/10/17 00:00 10/10/17 00:00 09/10/17 09:31 Acetaminophen/ Hydrocodone Bitart ([place] 5/325) 1 tab Q6H PRN ORAL Moderate Pain (Pain Scale 4-6) 09/10/17 13:30 09/17/17 13:29 09/11/17 12:21 Alprazolam (Xanax) 0.5 mg HSPRN PRN ORAL For Anxiety 09/10/17 21:00 09/17/17 20:59 09/10/17 22:03 Ciprofloxacin 200 ml @ 200 mls/hr Q12HR IV 09/10/17 09:00 09/17/17 08:59 09/11/17 08:50 Dextrose/Sodium Chloride 1,000 ml @ 100 mls/hr Q10H IV 09/09/17 23:45 10/09/17 23:44 09/11/17 05:58 Metronidazole 100 ml @ 100 mls/hr Q8HR IVPB 09/10/17 06:00 09/17/17 05:59 09/11/17 05:58 Morphine Sulfate (Morphine Sulfate) 2 mg Q4H PRN IVP Severe Pain (Pain Scale 7-10) 09/10/17 14:00 09/17/17 13:59 Ondansetron HCl (Zofran) 4 mg Q4HR PRN IVP Nausea & Vomiting 09/09/17 23:45 10/09/17 23:44 Allergies: Coded Allergies: No Known Allergies (Unverified , 03/28/14) ROS Limited/Unobtainable: No Constitutional: Reports: no symptoms HEENT: Reports: no symptoms Cardiovascular: Reports: no symptoms Respiratory: Reports: no symptoms Gastrointestinal/Abdominal: Reports: no symptoms Genitourinary: Reports: no symptoms Neurologic/Psychiatric: Reports: no symptoms Subjective 32 YO M admitted with abdominal pain/nausea/vomiting/diarrhea. Cover for Int Med-Dr Bernal. Await discharge home Objective Last Vital Signs Date Time Temp Pulse Resp B/P (MAP) Pulse Ox O2 Delivery O2 Flow Rate FiO2 09/11/17 12:00 97.8 54 18 114/64 98 09/10/17 20:51 Room Air General Appearance: WD/WN, no apparent distress, alert EENT: PERRL/EOMI, normal ENT inspection, TMs normal Neck: non-tender, normal alignment, supple, normal inspection Cardiovascular: normal peripheral pulses, normal rate, regular rhythm, no gallop/murmur, no JVD Respiratory/Chest: chest wall non-tender, lungs clear, normal breath sounds, no respiratory distress, no accessory muscle use Abdomen: normal bowel sounds, non tender, soft, no organomegaly, no mass Extremities: normal range of motion 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, no motor/sensory deficits Skin: normal pigmentation, warm/dry Laboratory Tests Test 09/10/17 16:00 09/11/17 08:00 Urine Opiates Screen Negative (NEGATIVE) Urine Barbiturates Screen Negative (NEGATIVE) Phencyclidine (PCP) Screen Negative (NEGATIVE) Urine Amphetamines Screen Negative (NEGATIVE) Urine Benzodiazepines Screen Negative (NEGATIVE) Urine Cocaine Screen Negative (NEGATIVE) Urine Marijuana (THC) Screen Negative (NEGATIVE) White Blood Count 7.1 K/UL (4.8-10.8) Red Blood Count 4.31 M/UL (4.70-6.10) L Hemoglobin 14.0 G/DL (14.2-18.0) L Hematocrit 40.1 % (42.0-52.0) L Mean Corpuscular Volume 93 FL (80-99) Mean Corpuscular Hemoglobin 32.5 PG (27.0-31.0) H Mean Corpuscular Hemoglobin Concent 35.0 G/DL (32.0-36.0) Red Cell Distribution Width 11.5 % (11.6-14.8) L Platelet Count 135 K/UL (150-450) L Mean Platelet Volume 7.9 FL (6.5-10.1) Neutrophils (%) (Auto) 63.8 % (45.0-75.0) Lymphocytes (%) (Auto) 20.7 % (20.0-45.0) Monocytes (%) (Auto) 12.1 % (1.0-10.0) H Eosinophils (%) (Auto) 2.7 % (0.0-3.0) Basophils (%) (Auto) 0.6 % (0.0-2.0) Sodium Level 138 MMOL/L (136-145) Potassium Level 3.4 MMOL/L (3.5-5.1) L Chloride Level 104 MMOL/L (98-107) Carbon Dioxide Level 27 MMOL/L (21-32) Anion Gap 7 mmol/L (5-15) Blood Urea Nitrogen 8 mg/dL (7-18) Creatinine 1.0 MG/DL (0.55-1.30) Estimat Glomerular Filtration Rate > 60 mL/min (>60) Glucose Level 103 MG/DL (74-106) Hemoglobin A1c 5.9 % (4.3-6.0) Calcium Level 8.5 MG/DL (8.5-10.1) Magnesium Level 1.8 MG/DL (1.8-2.4) HIV (1&2) Antibody Rapid Negative (NEGATIVE) Intake and Output 09/10/17 09/11/17 19:00 07:00 Intake Total 450 ml 2100 ml Output Total 700 ml Balance 450 ml 1400 ml Intake Oral 450 ml 800 ml IV Total 1300 ml Output Urine Total 700 ml # Voids 3 Assessment/Plan Problem List: (1) Diarrhea Assessment & Plan: C.Diff neg (2) Migraine (3) Intractable nausea and vomiting Assessment & Plan: See GI note. (4) Gastroenteritis (5) Dehydration Assessment & Plan: Resolved. Assessment/Plan Discharge home today GAGANDEEP ESPINOZA Sep 11, 2017 13:38
[2017-09-11] MEDS ORDERED: NORCO 5-325 TA1 EAC1 ORAL (13:59)
--- NOTE | 2017-09-15 09:14 | Discharge Summary ---
Discharge Summary Hospital Course Date of Admission Sep 09, 2017 at 22:30 Date of Discharge Sep 11, 2017 at 14:35 Admitting Diagnosis DEHYDRATION,INTRACTABLE NAUSEA,VOMITING HPI Davie Mejia is a 32 year old male who was admitted on Sep 09, 2017 at 22:30 for Dehydration, Intractable Nausea, Vomiting Hospital Course dc summary #[id number] Discharge Medications Continued Medications: Alprazolam* (Xanax*) 0.5 Mg Tablet 0.5 MG ORAL PRN for Insomnia, TAB Ciprofloxacin Hcl* (Ciprofloxacin Hcl*) 500 Mg Tablet 500 MG ORAL Q12H, #14 TAB 0 Refills Emtricitabine/Tenofovir 200-300MG* (Truvada 200-300MG*) 1 Each Tablet 1 TAB ORAL DAILY, TAB Hydrocodone Bit/Acetaminophen 5-325* ([place] 5-325 Tablet*) 1 Each Tablet 1 TAB ORAL Q4H for Pain Scale (6-10), #20 TAB Metronidazole* (Flagyl*) 500 Mg Tablet 500 MG ORAL BID, #14 TAB Naproxen* (Naprosyn*) 500 Mg Tablet 500 MG ORAL TWICE A DAY, #20 TAB Ondansetron Odt* (Zofran Odt*) 4 Mg Tab.rapdis 4 MG ORAL Q6H PRN for Nausea & Vomiting, #15 TAB 0 Refills Trimethoprim/Sulfamethoxazole 160/800* (Bactrim Ds Tablet*) 1 Each Tablet 1 TAB ORAL Q12H, #14 TAB Discharge Condition Upon Discharge: stable Discharge Disposition Patient was discharged to Home (01) Discharge Diagnoses: Gary (Dahianafilemon)Marilynn NP Sep 15, 2017 09:14
--- NOTE | 2017-09-15 16:45 | Discharge Summary 2 SIG ---
DATE OF ADMISSION: 09/09/2017 DATE OF DISCHARGE: 09/11/2017 REASON FOR ADMISSION: The patient is a 32-year-old male without significant past medical history presented with nausea, vomiting, diarrhea, fever, and epigastric abdominal pain for one day. The patient was seen in the emergency room, diagnosed with gastroenteritis, felt much better after medication, was discharged home. However, the patient returned due to the persistent symptoms. He was unable to hold down the food, had five episodes of emesis, which were nonbloody, non-biliary, however, was able to drink some water. Diarrhea watery, no blood in the stool. Reported fever 101 degrees. No recent antibiotic use. No recent trauma. In the emergency department, the patient was afebrile, otherwise stable vital signs. No leukocytosis. Stable hemoglobin and hematocrit. Stable electrolytes and renal parameters. Elevated lipase 433. Magnesium 1.3. The patient was admitted for further management with diagnoses of abdominal pain with associated nausea, vomiting, and diarrhea; possible gastroenteritis; dehydration; elevated lipase. HOSPITAL COURSE: The patient was admitted to Medical/Surgical floor. The patient was started on IV antibiotics. GI consult was requested. The patient was started on clear liquid diet and was advanced as tolerated. The patient was started on PPI. Antiemetic provided as needed. The patient was started on empiric antibiotic initially for possible infectious cause. Lipase trending down to normal. Elevated lipase was likely due to vomiting as per GI and resolved. LFTs were within normal limits. Magnesium was replaced stable afterwards. Pain management provided. Urine toxicology screen was negative. Stool culture and stool for C. difficile were negative. Blood culture were negative. The patient received IV hydration. Diet slowly advanced, and patient was able to tolerate diet. Pain was controlled. Abdominal ultrasound showed no acute pathology. Gastrointestinal specialist closely followed. HIV test screen was negative. Nausea, vomiting, diarrhea stopped. GI cleared for discharge. The patient was stable for discharge home. FINAL DIAGNOSES: 1. Probably viral gastroenteritis. 2. Abdominal pain with intractable nausea, vomiting, and diarrhea due to the gastroenteritis. 3. Hypomagnesemia, resolved. 4. Elevated lipase (likely due to vomiting), resolved. 5. Dehydration. DISCHARGE MEDICATIONS: See medication reconciliation. DISCHARGE INSTRUCTIONS: The patient was discharged home. Follow up with primary care provider. Brenden Bernal M.D. Marilynn DobbinsRuthy fowler DR: EUGENE JOB#: [id number] CC: MANJEET
== END 2017-09-11 14:35 | disposition home or self-care (01) | DRG 641 ==
LOC: EMR 19:48 → 3E 22:30 → EDBEDREQ 23:01
DX: E86.0 Dehydration (principal); K52.9 Noninfective gastroenteritis and colitis, unspecified; E83.42 Hypomagnesemia; R10.9 Unspecified abdominal pain
CPT/HCPCS: 36415; 76700; 80048; 80053; 80307; 81003; 82150; 83036; 83690; 83735; 84100; 85025; 86703; 87040; 87045; 99285; J2405; J8499

== ENCOUNTER 2017-10-11 11:54 | Emergency (ER) | payer OTHER ==
[~2017-10-11 11:54] MED LIST changes: +NORCO 5-325 TA1 EAC1 ORAL; +TRUVADA 200 MG1 EAC1 ORAL; +XANAX0.5 MG ORAL
--- NOTE | 2017-10-11 16:54 | Emergency Room Report ---
History of Present Illness General Chief Complaint: To Be Triaged Present Illness HPI This patient left prior to evaluation by medical provider. Allergies: Coded Allergies: No Known Allergies (Unverified , 03/28/14) Nursing Documentation-PMH Hx Diabetes: Yes - Pre Diabetes maybe?? Medical Decision Making PA Attestation Dr. Vázquez is my supervising Physician whom patient management has been discussed with. ER Course This patient left prior to evaluation by medical provider. Condition: Unknown Yanet Chacon Oct 11, 2017 16:54
[2017-10-11] MEDS ORDERED: PROMETHAZINE-C118 M1 ORAL (19:57)
[2017-10-11] MEDS ORDERED: ALBUTEROL SULF8.5 GM INH (19:57)
[2017-10-11] MEDS ORDERED: AFRIN NASAL SPR30 ML NASAL (19:57)
[2017-10-11] MEDS ORDERED: GUAIFENESIN1200 MG PO (19:57)
== END 2017-10-11 17:00 | disposition left against medical advice (07) ==
LOC: EMR 12:33
DX: Z53.21 Procedure and treatment not carried out due to patient leaving prior to being seen by health care provider (principal)
CPT/HCPCS: 99283

== ENCOUNTER 2017-10-11 18:18 | Emergency (ER) | payer OTHER ==
[~2017-10-11] VITALS: Ht 172.7 cm; Wt 77.1 kg
[2017-10-11 19:05] VITALS: BP 117/63
[2017-10-11] MEDS ORDERED: Albuterol ud Inhalation HHN ONE (19:15)
--- NOTE | 2017-10-11 19:24 | Emergency Room Report ---
History of Present Illness General Chief Complaint: Upper Respiratory Illness Present Illness HPI 32-year-old male presents to the emergency department complaining of persistent cough, nasal congestion, 7 out of 10 in severity sore throat, generalized body aches 2 days. Patient denies fevers or chills. Patient reports intermittent history of asthma and bronchitis in the past. Denies ear pain, high fevers, lethargy, neck pain/stiffness, irritability, photophobia dehydration, N/V/D. Denies Cp, Palpitations, LOC, AMS, seizures, paresthesias, or changes in Hearing or vision, no Sudden severe VOGT. Allergies: Coded Allergies: No Known Allergies (Unverified , 03/28/14) Patient History Past Medical History: see triage record Past Surgical History: none Pertinent Family History: none Reviewed Nursing Documentation: PMH: Agreed, PSxH: Agreed Nursing Documentation-PMH Hx Diabetes: Yes - Pre Diabetes maybe?? Review of Systems All Other Systems: negative except mentioned in HPI Physical Exam Vital Signs Date Time Temp Pulse Resp B/P (MAP) Pulse Ox O2 Delivery O2 Flow Rate FiO2 10/11/17 18:31 98.0 79 20 117/63 96 Room Air 98.1 Sp02 EP Interpretation: reviewed, normal General Appearance: no apparent distress, alert, GCS 15, non-toxic Head: normocephalic, atraumatic Eyes: bilateral eye normal inspection, bilateral eye PERRL ENT: hearing grossly normal, normal voice, TMs + canals normal, uvula midline, moist mucus membranes, nasal congestion, pharyngeal erythema Neck: full range of motion, no meningismus Respiratory: chest non-tender, lungs clear, normal breath sounds, no respiratory distress, no accessory muscle use, speaking full sentences, wheezing - scant wheezing Cardiovascular #1: regular rate, rhythm Musculoskeletal: back normal, gait/station normal, normal range of motion, non- tender Neurologic: alert, oriented x3, responsive, motor strength/tone normal, sensory intact, normal gait, speech normal, grossly normal Psychiatric: judgement/insight normal Skin: normal color, no rash, warm/dry, well hydrated Lymphatic: other - subparotid LAD bilaterally. Medical Decision Making PA Attestation Dr. Allen is my supervising Physician whom patient management has been discussed with. Diagnostic Impression: Primary Impression: Bronchitis Additional Impression: Upper respiratory infection, viral ER Course 32-year-old male presents to the emergency department complaining of persistent cough, nasal congestion, 7 out of 10 in severity sore throat, generalized body aches 2 days. Patient denies fevers or chills. Patient reports intermittent history of asthma and bronchitis in the past. Denies ear pain, high fevers, lethargy, neck pain/stiffness, irritability, photophobia dehydration, N/V/D. Denies Cp, Palpitations, LOC, AMS, seizures, paresthesias, or changes in Hearing or vision, no Sudden severe VOGT. Ddx considered but are not limited to URI, pneumonia, PE, strep pharyngitis, meningitis. Vital signs: Pt. is afebrile, the remaining VS are WNL H&PE are most consistent with URI- no meningeal signs, oropharynx is not involved, no evidence of bacterial infection at this time. ORDERS: none required at this time, the diagnosis is clinical ED INTERVENTIONS: -Albuterol Neb --PT. EDUCATION: Discussed antibiotic resistance with inappropriate prescribing of antibiotics for viral illnesses. Discussed signs and symptoms to indicate viral illness versus bacterial illness. DISCHARGE: At this time pt. is stable for d/c to home. Will provide printed patient care instructions, and any necessary prescriptions. Care plan and follow up instructions have been discussed with the patient prior to discharge. Last Vital Signs Date Time Temp Pulse Resp B/P (MAP) Pulse Ox O2 Delivery O2 Flow Rate FiO2 10/11/17 19:05 79 20 Room Air 10/11/17 19:05 98.1 117/63 96 98.1 Disposition: HOME, SELF-CARE Condition: Stable Departure Forms: Return to Work Return to Work Date: Oct 14, 2017 Work Restrictions: None Other Restrictions: May return sooner if symptoms have resolved. Return to Full Activity: Oct 14, 2017 Patient Instructions: Acute Bronchitis, [id number], Upper Respiratory Infection, Adult, [id number] Additional Instructions: Take medications as directed. Follow up with a Primary Care Provider in 3-5 days, even if your symptoms have resolved. --Please review list of primary care clinics, if you do not already have a primary care provider Return sooner to ED if new symptoms occur, or current symptoms become worse. Do not drink alcohol, drive, or operate heavy machinery while taking Cough Syrup as this may cause drowsiness. - Please note that this Emergency Department Report was dictated using [employer] risk technology software, occasionally this can lead to erroneous entry secondary to interpretation by the dictation equipment. Yanet Chacon Oct 11, 2017 19:23
[2017-10-11] MEDS ORDERED: ALBUTEROL SULF8.5 GM INH (19:57)
[2017-10-11] MEDS ORDERED: PROMETHAZINE-C118 M1 ORAL (19:57)
[2017-10-11] MEDS ORDERED: AFRIN NASAL SPR30 ML NASAL (19:57)
[2017-10-11] MEDS ORDERED: GUAIFENESIN1200 MG PO (19:57)
[2017-10-11 20:00] VITALS: BP 129/73
[2017-10-11 20:05] VITALS: BP 129/73
== END 2017-10-11 20:10 | disposition home or self-care (01) ==
LOC: EMR 19:00
DX: J40 Bronchitis, not specified as acute or chronic (principal); J06.9 Acute upper respiratory infection, unspecified
CPT/HCPCS: 94640; 99282

== ENCOUNTER 2017-10-13 17:51 | Emergency (ER) | payer OTHER ==
[~2017-10-13] VITALS: Ht 172.7 cm; Wt 79.8 kg
[~2017-10-13 17:51] MED LIST changes: +AFRIN NASAL SPR30 ML NASAL; +ALBUTEROL SULF8.5 GM INH; +GUAIFENESIN1200 MG PO; +PROMETHAZINE-C118 M1 ORAL
[2017-10-13] MEDS ORDERED: ZITHROMAX250 MG ORAL (18:09)
[2017-10-13] MEDS ORDERED: PROMETHAZINE-C118 M1 ORAL (18:09)
[2017-10-13] MEDS ORDERED: IBUPROFEN600 MG ORAL (18:09)
[2017-10-13 18:36] VITALS: BP 107/60
--- NOTE | 2017-10-13 18:56 | Emergency Room Report ---
History of Present Illness General Chief Complaint: Upper Respiratory Illness Source: Patient Present Illness HPI 32-year-old male walking with complaints of subjective fevers and chills. Was here 2 days ago for similar symptoms, states cough much better after albuterol and cough syrup he was prescribed. Denies chest pain, abdominal pain, vomiting, diarrhea, sick contacts, headache, neck pain or stiffness, myalgias. Allergies: Coded Allergies: No Known Allergies (Unverified , 03/28/14) Patient History Past Medical History: none Past Surgical History: none Pertinent Family History: none Social History: Denies: smoking, alcohol use, drug use Immunizations: UTD Reviewed Nursing Documentation: PMH: Agreed, PSxH: Agreed Nursing Documentation-PMH Past Medical History: No History, Except For Hx Diabetes: Yes - Pre Diabetes maybe?? Review of Systems All Other Systems: negative except mentioned in HPI Physical Exam Vital Signs Date Time Temp Pulse Resp B/P (MAP) Pulse Ox O2 Delivery O2 Flow Rate FiO2 10/13/17 17:55 102.4 111 18 129/66 96 Room Air 102.4 Sp02 EP Interpretation: reviewed, normal General Appearance: normal inspection, well appearing, no apparent distress, alert, GCS 15, non-toxic Head: normocephalic, atraumatic Eyes: bilateral eye PERRL, bilateral eye EOMI ENT: normal ENT inspection, hearing grossly normal, normal pharynx, no angioedema, normal voice, TMs + canals normal, uvula midline, moist mucus membranes Neck: normal inspection, full range of motion, supple, thyroid normal, no meningismus, no bony tend Respiratory: normal inspection, lungs clear, normal breath sounds, no rhonchi, no respiratory distress, no retraction, no accessory muscle use, no wheezing, speaking full sentences Cardiovascular #1: regular rate, rhythm, no edema, no JVD, normal capillary refill Gastrointestinal: normal inspection, normal bowel sounds, non tender, soft, no mass, no peritonitis, non-distended, no guarding, no hernia, no pulsatile mass Genitourinary: no CVA tenderness Musculoskeletal: normal inspection, back normal, normal range of motion, no calf tenderness, pelvis stable, Aissatou's Sign negative Neurologic: normal inspection, alert, oriented x3, responsive, electrical assembler III-XII nml as tested, motor strength/tone normal, cerebellar normal, normal gait, speech normal Psychiatric: normal inspection, judgement/insight normal, mood/affect normal, no suicidal/homicidal ideation, no delusions Skin: normal inspection, normal color, no rash Lymphatic: normal inspection, no adenopathy Medical Decision Making Diagnostic Impression: Primary Impression: Upper respiratory infection Qualified Codes: J06.9 - Acute upper respiratory infection, unspecified Additional Impression: Fever Qualified Codes: R50.9 - Fever, unspecified ER Course vitals signs significant for fever Otherwise normotensive, well-appearing, nonseptic appearing No sign of bacterial infection on exam of lungs, oropharynx, years Chest clear to auscultation bilaterally, no wheezing Given acute onset of fever, still most likely viral infection, however we'll give Z-Walter for atypical/CAP Refilled cough syrup And prescription high-dose ibuprofen for myalgias, fever ER course: Patient has remained stable during ED stay. Disposition: Patient is to be discharged to home. Prescriptions given are motrin, z-pack, cough syrup Patient is instructed to follow up with their primary care doctor within 5 days. Strict return precautions discussed with patient such as fever, chills, worsening/severe pain, nausea, vomiting, which may indicate severe illness. Patient verbalizes understanding and agrees with plan. Please note that this Emergency Department Report was dictated using [employer] roll operator heavy duty technology software, occasionally this can lead to erroneous entry secondary to interpretation by the dictation equipment Last Vital Signs Date Time Temp Pulse Resp B/P (MAP) Pulse Ox O2 Delivery O2 Flow Rate FiO2 10/13/17 18:36 100.9 99 17 107/60 98 Room Air 100.9 Status: improved Disposition: HOME, SELF-CARE Condition: Improved Scripts Ibuprofen* (MOTRIN*) 600 Mg Tablet 600 MG ORAL THREE TIMES A DAY for fever, aches for 7 Days, #30 TAB 0 Refills Prov: NELSON KUMAR M.D. 10/13/17 Azithromycin* (ZITHROMAX*) 250 Mg Tablet 250 MG ORAL DAILY for 5 Days, #6 TAB 0 Refills Take two tables once daily for 1 day, then one tablet once daily for 4 days. Prov: NELSON KUMAR M.D. 10/13/17 Codeine/Promethazine Hcl* (PROMETHAZINE-CODEINE SYRUP*) 118 Ml Syrup 5 ML ORAL Q6H Y for For Cough, #120 ML 0 Refills Prov: NELSON KUMAR M.D. 10/13/17 Patient Instructions: Upper Respiratory Infection, Adult NELSON KUMAR M.D. Oct 13, 2017 18:56
== END 2017-10-13 18:40 | disposition home or self-care (01) ==
LOC: EMR 18:09
DX: J06.9 Acute upper respiratory infection, unspecified (principal)
CPT/HCPCS: 99284

== ENCOUNTER 2018-02-28 23:49 | Emergency (ER) | payer OTHER ==
[~2018-02-28] VITALS: Ht 172.7 cm; Wt 74.8 kg
[~2018-02-28 23:49] MED LIST changes: +IBUPROFEN600 MG ORAL; +ZITHROMAX250 MG ORAL
[2018-03-01] MEDS ORDERED: ADDERAL20 MG ORAL
[2018-03-01] MEDS ORDERED: CLARITIN10 MG ORAL
[2018-03-01 00:07] VITALS: BP 123/72
[2018-03-01] MEDS ORDERED: IBUPROFEN600 MG ORAL (00:23)
--- NOTE | 2018-03-01 00:24 | Emergency Room Report ---
History of Present Illness General Chief Complaint: General Complaint Source: Patient Present Illness HPI Is a 32-year-old male who is right-hand dominant. He presents with multiple complaints. First complaint is he has gum pain. He use a water seamer elastic band on his teeth to days ago. Now he has some gum pain with brushing his teeth. No bleeding. He thought his gummy have receded he may need some surgical intervention. His second complaint is right shoulder pain. His been ongoing for almost 2 years. He said he couldn't get into see his doctor. He said he got worse the other day when he did some weight lifting and also hurt his knee. He said he heard some crunching sound in his knee. He is able to walk without any difficulty. His shoulders worse with movement. No fever chills but no nausea no vomiting. No recent trauma. Allergies: Coded Allergies: No Known Allergies (Unverified , 03/28/14) Patient History Past Medical History: see triage record, old chart reviewed Past Surgical History: none Pertinent Family History: none Social History: Denies: smoking Immunizations: other Reviewed Nursing Documentation: PMH: Agreed; PSxH: Agreed Nursing Documentation-PMH Hx Diabetes: No History Of Psychiatric Problem: Yes - chorinic fatigue Review of Systems Eye: Denies: eye pain, blurred vision ENT: Denies: ear pain, nose congestion, throat swelling Respiratory: Denies: cough, shortness of breath Cardiovascular: Denies: chest pain, palpitations Gastrointestinal: Denies: abdominal pain, diarrhea, nausea, vomiting Musculoskeletal: Reports: joint pain; Denies: back pain Skin: Denies: rash Neurological: Denies: headache, numbness Endocrine: Denies: increased thirst, increased urine Hematologic/Lymphatic: Denies: easy bruising All Other Systems: negative except mentioned in HPI Physical Exam Vital Signs Date Time Temp Pulse Resp B/P (MAP) Pulse Ox O2 Delivery O2 Flow Rate FiO2 02/28/18 23:51 98.4 84 18 123/72 96 98.4 vitals normal Sp02 EP Interpretation: reviewed, normal General Appearance: well appearing, no apparent distress, alert Head: normocephalic, atraumatic Eyes: bilateral eye PERRL, bilateral eye EOMI ENT: hearing grossly normal, normal pharynx, other - some mild irritation to the gingiva Neck: full range of motion, supple, no meningismus Respiratory: chest non-tender, lungs clear, normal breath sounds Cardiovascular #1: regular rate, rhythm, no murmur Gastrointestinal: normal bowel sounds, non tender, no mass, no organomegaly, no bruit, non-distended Musculoskeletal: back normal, gait/station normal, normal range of motion, tender - over right shoulder diffusely. worse with abduction past 90 degrees. no knee pain. walking w/o difficulty Psychiatric: mood/affect normal Skin: warm/dry Medical Decision Making Diagnostic Impression: Primary Impression: Gingivitis, acute Additional Impression: Shoulder bursitis Qualified Codes: M75.51 - Bursitis of right shoulder ER Course Patient presents with joint pain. No evidence of any fracture. I see no need for x-rays since it would not show ligament or MRSA. He may need an MRI. We' ll discharge home. No evidence of any bleeding in his gum. Last Vital Signs Date Time Temp Pulse Resp B/P (MAP) Pulse Ox O2 Delivery O2 Flow Rate FiO2 03/01/18 00:07 98.4 65 18 123/72 96 98.4 Status: unchanged Disposition: HOME, SELF-CARE Condition: Stable Scripts Ibuprofen* (MOTRIN*) 600 Mg Tablet 600 MG ORAL THREE TIMES A DAY, #30 TAB 0 Refills Prov: ORLANDO BRICEÑO M.D. 03/01/18 Additional Instructions: Salt water gargle 6-year-old gum. Follow-up with dentist MIKAYLA. Follow-up with your doctor in 7 days. You may need an MRI of your shoulder. You may need a referral to see orthopedic DrLaila for injection. Return if worse. ORLANDO BRICEÑO M.D. Mar 01, 2018 00:23
[2018-03-01 00:35] VITALS: BP 123/72
== END 2018-03-01 00:35 | disposition home or self-care (01) ==
LOC: EMR 23:59
DX: K05.00 Acute gingivitis, plaque induced (principal); M75.51 Bursitis of right shoulder
CPT/HCPCS: 99283

== ENCOUNTER 2018-05-07 11:01 | Emergency (ER) | payer OTHER ==
[~2018-05-07] VITALS: Ht 172.7 cm; Wt 74.8 kg
[~2018-05-07 11:01] MED LIST changes: +ADDERAL20 MG ORAL; +CLARITIN10 MG ORAL
[2018-05-07 11:20] VITALS: BP 115/73
--- NOTE | 2018-05-07 11:26 | Emergency Room Report ---
History of Present Illness General Chief Complaint: Pain Source: Patient Present Illness HPI Patient is a 32-year-old male presented after increased left sided groin pain. Patient reports having pain and discomfort for approximately 5 days. Patient reports having increased the swelling to the area. Allergies: Coded Allergies: No Known Allergies (Unverified , 03/28/14) Patient History Reviewed Nursing Documentation: PMH: Agreed; PSxH: Agreed Nursing Documentation-PMH Past Medical History: No Stated History Hx Diabetes: No Review of Systems All Other Systems: negative except mentioned in HPI Physical Exam Vital Signs Date Time Temp Pulse Resp B/P (MAP) Pulse Ox O2 Delivery O2 Flow Rate FiO2 05/07/18 11:11 98.7 78 18 111/70 98 Room Air 98.8 General Appearance: well appearing, no apparent distress, alert, GCS 15 Head: normocephalic, atraumatic ENT: hearing grossly normal, normal voice Neck: full range of motion, supple Respiratory: no respiratory distress, speaking full sentences Musculoskeletal: no calf tenderness, other - tenderness to left inguinal area Neurologic: normal inspection, alert, oriented x3, responsive, normal gait Psychiatric: mood/affect normal Skin: no rash Medical Decision Making Diagnostic Impression: Primary Impression: Lymphadenitis ER Course Patient presented for left inguinal pain. Differential diagnosis included was not limited to femoral hernia, lymphadenitis, leukemia, abscess among others.Because of complexity of patient's case imaging studies were ordered. Patient was noted to have the tender lymph nodes which are noted in the left inguinal area. The patient was given prescription for doxycycline. Patient is advised to have a repeat section transmitted infection testing with his primary care physician.The patient is advised to follow up with primary care doctor in 2-3 days. Patient is advised to return if any worsening condition or if any changes in status that are concerning. This report is dictated with [employer] pathology transcriptionist software which may occasionally lead to discrepancies related to use of this software. Labs Test 05/07/18 11:00 Urine Color Pale yellow Urine Appearance Clear Urine pH 8 (4.5-8.0) Urine Specific [place] 1.010 (1.005-1.035) Urine Protein Negative (NEGATIVE) Urine Glucose (UA) Negative (NEGATIVE) Urine Ketones Negative (NEGATIVE) Urine Blood Negative (NEGATIVE) Urine Nitrite Negative (NEGATIVE) Urine Bilirubin Negative (NEGATIVE) Urine Urobilinogen Normal MG/DL (0.0-1.0) Urine Leukocyte Esterase Negative (NEGATIVE) Last Vital Signs Date Time Temp Pulse Resp B/P (MAP) Pulse Ox O2 Delivery O2 Flow Rate FiO2 05/07/18 11:11 98.7 78 18 111/70 98 Room Air 98.8 Status: improved Disposition: HOME, SELF-CARE Condition: Stable Scripts Doxycycline Monohydrate* (DOXYCYCLINE MONOHYDRATE*) 100 Mg Capsule 100 MG ORAL Q12H, #14 CAP 0 Refills Prov: Jacoby Vázquez MD 05/07/18 Ibuprofen* (MOTRIN*) 600 Mg Tablet 600 MG ORAL Q8H PRN for For Pain, #30 TAB 0 Refills Prov: Jacoby Vázquez MD 05/07/18 Jacoby Vázquez MD May 07, 2018 11:26
[2018-05-07] MEDS ORDERED: Ketorolac 60mg Inj IM ONE (12:00)
[2018-05-07 12:29] LABS: APPEARANCE,URINE CLEAR; BILIRUBIN, URINE NEGATIVE (NEGATIVE); COLOR,URINE PALE YELLOW; GLUCOSE, URINE (UA) NEGATIVE (NEGATIVE); KETONES,URINE NEGATIVE (NEGATIVE); LEUKOCYTE ESTERASE ,URINE NEGATIVE (NEGATIVE); NITRITE,URINE NEGATIVE (NEGATIVE); PH,URINE 8 (4.5-8.0); PROTEIN,URINE NEGATIVE (NEGATIVE); UROBILINOGEN,URINE NORMAL MG/DL (0.0-1.0)
[2018-05-07] MEDS ORDERED: DOXYCYCLINE MO100 MG ORAL (13:15)
[2018-05-07] MEDS ORDERED: IBUPROFEN600 MG ORAL (13:15)
[2018-05-07 13:33] VITALS: BP 115/73
--- NOTE | 2018-05-07 14:01 | Diagnostic Imaging Report ---
EXAM: US Left Lower Extremity Non-Vascular, Complete CLINICAL HISTORY: PAIN TECHNIQUE: Real-time ultrasound scan of the left lower extremity with image documentation. COMPARISON: No relevant prior studies available. FINDINGS: Soft tissues: Unremarkable. No subcutaneous fluid collection. Lymph nodes: Prominent left inguinal lymph nodes, largest measuring 1. 8 cm. IMPRESSION: Prominent left inguinal lymph nodes, largest measuring 1.8 cm.
== END 2018-05-07 13:26 | disposition home or self-care (01) ==
LOC: EMR 11:48
DX: I88.9 Nonspecific lymphadenitis, unspecified (principal); R10.32 Left lower quadrant pain
CPT/HCPCS: 81003; 96372; 99284

== ENCOUNTER 2018-05-09 16:58 | Emergency (ER) | payer OTHER ==
[~2018-05-09] VITALS: Ht 172.7 cm; Wt 77.1 kg
[~2018-05-09 16:58] MED LIST changes: +DOXYCYCLINE MO100 MG ORAL
[2018-05-09 17:20] VITALS: BP 138/83
--- NOTE | 2018-05-09 17:42 | Emergency Room Report ---
History of Present Illness General Chief Complaint: Generalized Weakness Source: Patient Present Illness HPI 32-year-old male patient presents to ER complaining of generalized weakness for the past 2 days. Also complaining of swollen left inguinal lymph node that he was seen in the ER for 2 days ago. States that he is currently taking doxycycline, began taking medication yesterday. She denies painful urination. Denies dysuria, hematuria, penile discharge, testicular swelling or pain. Reports subjective fever, denies chills. denies vomiting, chest pain, shortness of breath, diarrhea. denies openly lesions or rashes in general area, reports swollen lymph node has increased in size since previous visit. Reports previous STI testing was negative except for an abnormal RPR results. States his doctor did not begin treatment with any medications at that time. Denies history of HIV. reports intermittent dizziness during this time, denies syncope or fainting. Reports symptoms began after working out. Denies vomiting or vision changes. Denies tinnitus. Denies vertigo. Allergies: Coded Allergies: No Known Allergies (Unverified , 03/28/14) Patient History Past Medical History: see triage record, old chart reviewed Reviewed Nursing Documentation: PMH: Agreed; PSxH: Agreed Nursing Documentation-PMH Past Medical History: No Stated History Hx Cardiac Problems: No Hx Hypertension: No Hx Pacemaker: No Hx Asthma: No Hx COPD: No Hx Diabetes: No Hx Cancer: No Hx Gastrointestinal Problems: No Hx Dialysis: No History Of Psychiatric Problem: No Hx Neurological Problems: No Hx Cerebrovascular Accident: No Hx Seizures: No Review of Systems All Other Systems: negative except mentioned in HPI Physical Exam Vital Signs Date Time Temp Pulse Resp B/P (MAP) Pulse Ox O2 Delivery O2 Flow Rate FiO2 05/09/18 17:06 99.1 95 18 138/83 97 Room Air 99.1 Sp02 EP Interpretation: reviewed, normal General Appearance: well appearing, no apparent distress, alert, GCS 15, non- toxic Head: normocephalic, atraumatic Eyes: bilateral eye normal inspection, bilateral eye PERRL ENT: hearing grossly normal, normal pharynx, no angioedema, normal voice, TMs + canals normal, uvula midline, moist mucus membranes Neck: full range of motion Respiratory: lungs clear, normal breath sounds, no rhonchi, no respiratory distress, no accessory muscle use, no wheezing, speaking full sentences Cardiovascular #1: regular rate, rhythm, no edema Gastrointestinal: non tender, soft, no mass, non-distended, no guarding, no rebound Genitourinary: penis normal, scrotum normal, other - 1 cm palpable inguinal lymph node, no overlying erythema or edema; no chancre Musculoskeletal: back normal, digits/nails normal, gait/station normal, normal range of motion, non-tender Neurologic: alert, oriented x3, responsive, bead picker III-XII nml as tested, motor strength/tone normal, sensory intact, cerebellar normal, normal gait, speech normal Psychiatric: mood/affect normal Skin: no rash Lymphatic: no adenopathy Medical Decision Making PA Attestation Dr. Vázquez is my supervising Physician whom patient management has been discussed with. Diagnostic Impression: Primary Impression: Lymphadenitis Additional Impression: Generalized weakness ER Course Pt. presents to the ED c/o swollen inguinal lymph node and generalized weakness. Ddx considered but are not limited to gonorrhea, chlamydia, cystitis, pyelonephritis., anemia, dehydration, electrolyte abnormality, anxiety. no focal neural deficits, cranial nerves intact as tested, does not require CT head at this time. Vital signs: are WNL, pt. is afebrile Ordered UA and abx. ER COURSE: physical exam consistent with previous ER report Willl order basic labs to rule out worsening of infection. CBC and CMP unremarkable, no elevation of WBCs or LFTs, H&H normal. UA results show negative follow-up with primary care provider. Tylenol and/or Motrin for fever symptoms. Patient reports feeling better upon discussion of symptoms and lab results. Patient reports feeling better discharged home. Advised to drink plenty of fluids, stay hydrated. Normal skin turgor, cap refill < 2seconds, moist mucus membranes, low suspicion for dehydration. Advised to use safe sex practices including but not limited to use of condoms. Avoid sexual activity for the next2 weeks. Instructed patient to follow up with STI clinic and/or PCP for STI evaluation and further treatment as necessary. Instructed patient to inform partners of needs for evaluation and treatment of possible infections. DISCHARGE: continued taking medications as previously instructed. follow-up with PCP for further testing and treatment. Patient is resting comfortably, in no acute distress, nontoxic appearing, talking without difficulty. Patient to take medications as instructed Will provide with patient care instructions and any necessary prescriptions. Care plan and follow-up instructions provided. Patient instructed to follow-up with primary care provider in 3 - 5 days. Patient questions asked and answered. Patient reports understanding and agreement to treatment plan. ER precautions given. Patient instructed to return to ER immediately for any new or worsening of symptoms including but not limited to increasing SOB, persistent fever. - Please note that this Emergency Department Report was dictated using [employer] cleaner technology software, occasionally this can lead to erroneous entry secondary to interpretation by the dictation equipment. Labs Test 05/09/18 17:35 White Blood Count 8.8 K/UL (4.8-10.8) Red Blood Count 4.58 M/UL (4.70-6.10) Hemoglobin 15.2 G/DL (14.2-18.0) Hematocrit 41.8 % (42.0-52.0) Mean Corpuscular Volume 91 FL (80-99) Mean Corpuscular Hemoglobin 33.1 PG (27.0-31.0) Mean Corpuscular Hemoglobin Concent 36.3 G/DL (32.0-36.0) Red Cell Distribution Width 10.4 % (11.6-14.8) Platelet Count 190 K/UL (150-450) Mean Platelet Volume 6.5 FL (6.5-10.1) Neutrophils (%) (Auto) 68.8 % (45.0-75.0) Lymphocytes (%) (Auto) 16.3 % (20.0-45.0) Monocytes (%) (Auto) 11.2 % (1.0-10.0) Eosinophils (%) (Auto) 3.0 % (0.0-3.0) Basophils (%) (Auto) 0.8 % (0.0-2.0) Urine Color Pale yellow Urine Appearance Clear Urine pH 7 (4.5-8.0) Urine Specific [place] 1.005 (1.005-1.035) Urine Protein Negative (NEGATIVE) Urine Glucose (UA) Negative (NEGATIVE) Urine Ketones Negative (NEGATIVE) Urine Blood Negative (NEGATIVE) Urine Nitrite Negative (NEGATIVE) Urine Bilirubin Negative (NEGATIVE) Urine Urobilinogen Normal MG/DL (0.0-1.0) Urine Leukocyte Esterase Negative (NEGATIVE) Sodium Level 140 MMOL/L (136-145) Potassium Level 4.3 MMOL/L (3.5-5.1) Chloride Level 106 MMOL/L (98-107) Carbon Dioxide Level 24 MMOL/L (21-32) Anion Gap 10 mmol/L (5-15) Blood Urea Nitrogen 13 mg/dL (7-18) Creatinine 1.2 MG/DL (0.55-1.30) Estimat Glomerular Filtration Rate > 60 mL/min (>60) Glucose Level 100 MG/DL (74-106) Calcium Level 9.4 MG/DL (8.5-10.1) Total Bilirubin 0.4 MG/DL (0.2-1.0) Aspartate Amino Transf (AST/SGOT) 24 U/L (15-37) Alanine Aminotransferase (ALT/SGPT) 30 U/L (12-78) Alkaline Phosphatase 110 U/L (46-116) Total Protein 8.1 G/DL (6.4-8.2) Albumin 4.0 G/DL (3.4-5.0) Globulin 4.1 g/dL Albumin/Globulin Ratio 1.0 (1.0-2.7) Last Vital Signs Date Time Temp Pulse Resp B/P (MAP) Pulse Ox O2 Delivery O2 Flow Rate FiO2 05/09/18 17:06 99.1 95 18 138/83 97 Room Air 99.1 Status: improved Disposition: HOME, SELF-CARE Condition: Stable Patient Instructions: Lymphadenopathy, Weakness Additional Instructions: Followup with primary care provider and followup with STI clinic for further evaluation and treatment. Alert sexual partners for need for evaluation and treatment. Wear condoms during sex. Avoid sexual activity for 2 weeks. Drink plenty of fluids. Patient questions asked and answered. ER precautions given, patient instructed to return to ER immediately for any new or worsening of symptoms. Jason Baptiste May 09, 2018 17:42
[2018-05-09 17:57] LABS: APPEARANCE,URINE CLEAR; BILIRUBIN, URINE NEGATIVE (NEGATIVE); COLOR,URINE PALE YELLOW; GLUCOSE, URINE (UA) NEGATIVE (NEGATIVE); KETONES,URINE NEGATIVE (NEGATIVE); LEUKOCYTE ESTERASE ,URINE NEGATIVE (NEGATIVE); NITRITE,URINE NEGATIVE (NEGATIVE); PH,URINE 7 (4.5-8.0); PROTEIN,URINE NEGATIVE (NEGATIVE); UROBILINOGEN,URINE NORMAL MG/DL (0.0-1.0)
[2018-05-09 18:01] LABS: BASOPHILS % (AUTO) 0.8 % (0.0-2.0); HEMATOCRIT 41.8 % (42.0-52.0); HEMOGLOBIN 15.2 G/DL (14.2-18.0); LYMPHOCYTES % (AUTO) 16.3 % (20.0-45.0); MEAN CORPUSCULAR VOLUME 91 FL (80-99); MONOCYTES % (AUTO) 11.2 % (1.0-10.0); NEUTROPHILS % (AUTO) 68.8 % (45.0-75.0); PLATELET COUNT 190 K/UL (150-450); RED BLOOD COUNT 4.58 M/UL (4.70-6.10); RED CELL DISTRIBUTION WIDTH 10.4 % (11.6-14.8); WHITE BLOOD COUNT 8.8 K/UL (4.8-10.8)
[2018-05-09 18:13] LABS: ANION GAP 10 mmol/L (5-15); BLOOD UREA NITROGEN 13 mg/dL (7-18); CALCIUM 9.4 MG/DL (8.5-10.1); CARBON DIOXIDE 24 MMOL/L (21-32); CHLORIDE 106 MMOL/L (98-107); CREATININE 1.2 MG/DL (0.55-1.30); POTASSIUM 4.3 MMOL/L (3.5-5.1); SODIUM 140 MMOL/L (136-145)
[2018-05-09 18:17] LABS: ALANINE AMINOTRANSFERASE 30 U/L (12-78); ALKALINE PHOSPHATASE 110 U/L (46-116); ASPARTATE AMINO TRANSFERASE 24 U/L (15-37); BILIRUBIN,TOTAL 0.4 MG/DL (0.2-1.0)
[2018-05-09 19:26] VITALS: BP 127/78
== END 2018-05-09 19:28 | disposition home or self-care (01) ==
LOC: EMR 17:45
DX: I88.9 Nonspecific lymphadenitis, unspecified (principal); R53.1 Weakness; R42 Dizziness and giddiness; R50.9 Fever, unspecified
CPT/HCPCS: 36415; 80053; 81003; 85025; 99284

== ENCOUNTER 2018-08-02 17:50 | Emergency (ER) | payer OTHER ==
[~2018-08-02] VITALS: Ht 175.3 cm; Wt 77.6 kg
[2018-08-02 18:00] VITALS: BP 120/76
--- NOTE | 2018-08-02 18:00 | NUR ---
ED Nurse Note: PT WALKED IN TO ER TODAY FROM HOME. AOX4. PT C/O LEFT GROIN PAIN, 6/ X 2 WEEKS DUE TO WHAT PT BELIEVES IS A SWOLLEN LYMPH NODE. PT STATES HE WAS SEEN BEFORE DUE TO SIMILAR FEELING X 2 MONTHS AGO.
--- NOTE | 2018-08-02 19:12 | NUR ---
HAND-OFF: REPORT GIVEN TO GINA CAMACHO.
[2018-08-02] MEDS ORDERED: DOXYCYCLINE MO100 MG ORAL (20:13)
[2018-08-02] MEDS ORDERED: PREDNISONE20 MG ORAL (20:13)
--- NOTE | 2018-08-02 20:16 | Emergency Room Report ---
History of Present Illness General Chief Complaint: Skin Rash/Abscess Source: Patient Present Illness HPI 33-year-old male presenting with swollen left knee and left noted to his left groin for the last 2 weeks. Says it is not going away, sometimes painful. No fever no chills. For that he has a history of swollen lymph nodes in the past, he has not yet followed up with his PCP for this. Says it usually goes away with prednisone as well as antibiotics. Denies any other complaints. No nausea vomiting diarrhea, no constipation Allergies: Coded Allergies: No Known Allergies (Unverified , 03/28/14) Patient History Past Medical History: see triage record Past Surgical History: none Pertinent Family History: none Reviewed Nursing Documentation: PMH: Agreed; PSxH: Agreed Nursing Documentation-PMH Past Medical History: No History, Except For Hx Cardiac Problems: No Hx Hypertension: No Hx Pacemaker: No Hx Asthma: No Hx COPD: No Hx Diabetes: No Hx Cancer: No Hx Gastrointestinal Problems: Yes - Pancreatitis Hx Dialysis: No Hx Neurological Problems: No Hx Cerebrovascular Accident: No Hx Seizures: No Review of Systems All Other Systems: negative except mentioned in HPI Physical Exam Vital Signs Date Time Temp Pulse Resp B/P (MAP) Pulse Ox O2 Delivery O2 Flow Rate FiO2 08/02/18 17:57 98.2 105 21 124/73 98 Room Air Sp02 EP Interpretation: reviewed, normal General Appearance: normal inspection, well appearing, no apparent distress, alert, GCS 15, non-toxic Head: normocephalic, atraumatic Eyes: bilateral eye normal inspection, bilateral eye PERRL, bilateral eye EOMI ENT: normal ENT inspection, normal pharynx, normal voice, moist mucus membranes Neck: normal inspection, full range of motion, supple Respiratory: normal inspection, lungs clear, normal breath sounds, no respiratory distress, no retraction, no wheezing, speaking full sentences, chest symmetrical Cardiovascular #1: normal inspection, regular rate, rhythm, normal capillary refill Cardiovascular #2: 2+ radial (R), 2+ radial (L) Gastrointestinal: normal inspection, non tender, soft, non-distended, no guarding Genitourinary: other - Left gROIN noted to have a palpable lymph node, no overlying erythema, slightly tender to palpation, no fluctuance Musculoskeletal: normal inspection, back normal, normal range of motion, non- tender Neurologic: normal inspection, alert, oriented x3, responsive, motor strength/ tone normal, sensory intact, normal gait, speech normal Psychiatric: normal inspection, judgement/insight normal, memory normal Skin: normal inspection, normal color, no rash, warm/dry, well hydrated, normal turgor Medical Decision Making Diagnostic Impression: Primary Impression: Lymph nodes enlarged ER Course 33-year-old male with left groin swollen lymph node DDX: lymphadenopathy, lymphadenitis, chronically does not seem to be hernia at all Plan: Reassurance ER course: Patient has remained stable during ED stay. Disposition: Patient is to be discharged to home. Prescriptions given are prednisone and doxycycline Patient is instructed to follow up with their primary care doctor within 5 days without fail to workup his chronic intermittent lymphadenopathy Strict return precautions discussed with patient such as fever, chills, worsening/severe pain, chest pain, SOB, nausea, vomiting, which may indicate severe illness. Patient verbalizes understanding and agrees with plan. Please note that this Emergency Department Report was dictated using [employer] technology software, occasionally this can lead to erroneous entry secondary to interpretation by the dictation equipment Last Vital Signs Date Time Temp Pulse Resp B/P (MAP) Pulse Ox O2 Delivery O2 Flow Rate FiO2 08/02/18 18:00 98.4 96 20 120/76 99 Room Air Disposition: HOME, SELF-CARE Condition: Stable Scripts Prednisone* (PREDNISONE*) 20 Mg Tablet 40 MG ORAL DAILY for 3 Days, #6 TAB Prov: Glenna Galeana M.D. 08/02/18 Doxycycline Monohydrate* (DOXYCYCLINE MONOHYDRATE*) 100 Mg Capsule 100 MG ORAL Q12H, #14 CAP 0 Refills Prov: Glenna Galeana M.D. 08/02/18 Patient Instructions: Lymphadenopathy Additional Instructions: PLEASE FOLLOW UP WITH YOUR PRIMARY CARE DOCTOR IN 1 WEEK Glenna Galeana M.D. Aug 02, 2018 20:16
[2018-08-02 20:20] VITALS: BP 112/78
--- NOTE | 2018-08-02 20:25 | NUR ---
ED Nurse Note: pt discharge instruction provided w/ prescription, pt verbalized understanding and agrees with plan, pt advised to follow up with pcp in 2-3days, pt education done, pt left with all belongings, pt wristband removed, pt advised to return to ed if s/s worsen or new s/s develop.
== END 2018-08-02 20:20 | disposition home or self-care (01) ==
LOC: EMR 19:40
DX: R59.1 Generalized enlarged lymph nodes (principal); R59.0 Localized enlarged lymph nodes
CPT/HCPCS: 99282

== ENCOUNTER 2019-02-02 19:06 | Emergency (ER) | payer OTHER ==
[~2019-02-02] VITALS: Ht 172.7 cm; Wt 75.7 kg
[~2019-02-02 19:06] MED LIST changes: +PREDNISONE20 MG ORAL
[2019-02-02 19:12] VITALS: BP 108/68
--- NOTE | 2019-02-02 19:12 | NUR ---
ED Nurse Note: c/o feeling weak on the left sided of body, restless and abdominal pain and nausea since 1600 today; hx of anxiety. patient is alert and oriented x4, ambulatory with a steady gait, VSS
[2019-02-02] MEDS ORDERED: LORazepam 1mg tab ORAL ONE (19:45)
--- NOTE | 2019-02-02 20:06 | NUR ---
ED Nurse Note: patient refused ativan
--- NOTE | 2019-02-02 20:13 | Emergency Room Report ---
History of Present Illness General Chief Complaint: Generalized Weakness Source: Patient Present Illness HPI 33-year-old male presents to the emergency department complaining of increased anxiousness, paresthesia and feeling of weakness to primarily the left side of his body in addition to 7 out of 10 severity epigastric abdominal pain. Patient reports that his paresthesias and weakness seems to siding at this time he states he continues to have the abdominal pain he denies nausea, vomiting, constipation, diarrhea, fevers chills. He reports that he has history of anxiety as well as ADHD he currently takes Wellbutrin and Viibryd in the morning in addition to one Xanax at night. Patient states that today he upped his dosage of Viibryd to 20 mg. Denies smoking history, and onset headache, difficulty with speech or swallowing. Denies dizziness, loss of consciousness or pain/palpitations. History of pancreatitis as well as intermittent gastritis. Rest is helping to relieve his symptoms. Allergies: Coded Allergies: No Known Allergies (Unverified , 03/28/14) Patient History Past Medical History: see triage record, psych hx Past Surgical History: none Pertinent Family History: none Reviewed Nursing Documentation: PMH: Agreed; PSxH: Agreed Nursing Documentation-PMH Past Medical History: No History, Except For Hx Cardiac Problems: No Hx Hypertension: No Hx Pacemaker: No Hx Asthma: No Hx COPD: No Hx Diabetes: No Hx Cancer: No Hx Gastrointestinal Problems: Yes - Pancreatitis Hx Dialysis: No History Of Psychiatric Problem: Yes - Anxiety Hx Neurological Problems: No Hx Cerebrovascular Accident: No Hx Seizures: No Review of Systems All Other Systems: negative except mentioned in HPI Physical Exam Vital Signs Date Time Temp Pulse Resp B/P (MAP) Pulse Ox O2 Delivery O2 Flow Rate FiO2 02/02/19 19:09 98.2 87 16 108/68 (81) 97 Room Air Sp02 EP Interpretation: reviewed, normal General Appearance: well appearing, no apparent distress, alert, GCS 15, non- toxic Head: normocephalic, atraumatic Eyes: bilateral eye normal inspection, bilateral eye PERRL ENT: hearing grossly normal, normal voice Neck: full range of motion Respiratory: chest non-tender, lungs clear, normal breath sounds, no respiratory distress, no wheezing, speaking full sentences Cardiovascular #1: regular rate, rhythm Gastrointestinal: normal bowel sounds, soft, no peritonitis, non-distended, no guarding, tenderness - mild epigastric ttp. Musculoskeletal: back normal, gait/station normal, normal range of motion, non- tender Neurologic: alert, oriented x3, responsive, motor strength/tone normal, sensory intact, normal gait, speech normal, no pronator, other - no facial droop. equal fiber optic assembly worker strength, grossly normal Psychiatric: judgement/insight normal Medical Decision Making PA Attestation Dr. Méndez Is my supervising Physician whom patient management has been discussed with. Diagnostic Impression: Primary Impression: Gastritis Qualified Codes: K29.00 - Acute gastritis without bleeding Additional Impression: Paresthesia ER Course 33-year-old male presents to the emergency department complaining of increased anxiousness, paresthesia and feeling of weakness to primarily the left side of his body in addition to 7 out of 10 severity epigastric abdominal pain. Patient reports that his paresthesias and weakness seems to siding at this time he states he continues to have the abdominal pain he denies nausea, vomiting, constipation, diarrhea, fevers chills. He reports that he has history of anxiety as well as ADHD he currently takes Wellbutrin and Viibryd in the morning in addition to one Xanax at night. Patient states that today he upped his dosage of Viibryd to 20 mg. Denies smoking history, and onset headache, difficulty with speech or swallowing. Denies dizziness, loss of consciousness or pain/palpitations. History of pancreatitis as well as intermittent gastritis. Rest is helping to relieve his symptoms. Ddx considered but are not limited to anxiety, PA, PE, asthma, thyroid storm, hyperthyroid, EPS, gastritis, PUD, CVA/TIA, Migraine Vital signs: are WNL, pt. is afebrile H&PE are most consistent with anxious reaction/somatic symptoms. Focal neurological deficits no weakness on physical exam. Events to suggest acute abdomen patient is in no acute distress and nontoxic in appearance. ORDERS: none required at this time, the diagnosis is clinical ED INTERVENTIONS: - 1mg Ativan ---declined by pt. -Mylanta -Pepcid ---Pt. declined Ativan and stated his paresthesias have completely resolved. He reports after taking Mylanta and Pepcid his epigastric pain has also subsided. Pt. requesting to be D/c now. -I do not identify an emergent condition at this time. With current presentation , pt. is stable for close outpatient follow up and conservative treatment. D/ w pt. to return promptly to ED with worsening or new symptoms.- Pt. verbalizes' understanding and agreement with proposed treatment plan.proposed treatment plan. DISCHARGE: At this time pt. is stable for d/c to home. Will provide printed patient care instructions, and any necessary prescriptions. Care plan and follow up instructions have been discussed with the patient prior to discharge. Last Vital Signs Date Time Temp Pulse Resp B/P (MAP) Pulse Ox O2 Delivery O2 Flow Rate FiO2 02/02/19 19:09 98.2 87 16 108/68 (81) 97 Room Air Disposition: HOME, SELF-CARE Condition: Stable Scripts Ranitidine Hcl* (ZANTAC*) 150 Mg Tablet 150 MG ORAL TWICE A DAY for 7 Days, #14 TAB Prov: Yanet Chacon 02/02/19 Patient Instructions: Gastritis, Adult, [id number], Paresthesia, [id number] Additional Instructions: Take medications as directed. Follow up with a Primary Care Provider in 3-5 days, even if your symptoms have resolved. Follow up with your psychologist on Wednesday at your appointment. Return sooner to ED if new symptoms occur, or current symptoms become worse. - Please note that this Emergency Department Report was dictated using [employer] expert technology software, occasionally this can lead to erroneous entry secondary to interpretation by the dictation equipment. Yanet Chacon Feb 02, 2019 20:12
[2019-02-02] MEDS ORDERED: RANITIDINE HCL150 MG ORAL (20:26)
[2019-02-02 20:30] VITALS: BP 120/81
--- NOTE | 2019-02-02 20:30 | NUR ---
ER DISCHARGE NOTE: Patient is cleared to be discharged per ERMD, pt is aox4, on room air, with stable vital signs. pt was given dc and prescription instructions, pt was able to verbalize understanding, pt id band and removed without complications. pt is able to ambulate with steady gait. pt took all belongings.
== END 2019-02-02 20:30 | disposition home or self-care (01) ==
LOC: EMR 19:32
DX: K29.70 Gastritis, unspecified, without bleeding (principal); R20.2 Paresthesia of skin
CPT/HCPCS: 99282